=== PATIENT | male | born 1945 | race Caucasian/White ===

== ENCOUNTER 2016-09-26 21:05 | Observation (INO) | payer MEDICARE, BC ==
--- NOTE | 2016-09-26 21:44 | EDM.PDOC ---
Addendum entered and electronically signed by Eliu Stewart PA 09/26/16 22:48 : please use ER note as admission H and P Original Note: ED HPI GENERAL MEDICAL PROBLEM - General Chief Complaint: Chest Pain Stated Complaint: chest pain Time Seen by Provider: 09/26/16 21:25 Source of Information: Reports: Patient History Limitations: Reports: No Limitations - History of Present Illness INITIAL COMMENTS - FREE TEXT/NARRATIVE: 71 yo wm with PMH of atrial fibrillation presents to ER with 2 episodes of sharp pleuritic left sided chest pain which began at 7pm tonight. Pt reports he was walking from living room to kitchen when he developed sudden onset sharp left sided chest pain which lasted for 5 minutes. Pt reports some mild shortness of breath. Pt reports pain happened again before bed tonight but it was much more mild and without shortness of breath. Pt denies nausea, dizziness , diaphoresis or palpitations. Onset: Today Onset Date: 09/26/16 Onset Time: 19:00 Duration: Hour(s): (3) Location: Reports: Chest Severity: Mild Improves with: Reports: None Worsens with: Reports: Breathing Context: Denies: Activity, Exercise, Lifting, Sick Contact, Trauma Associated Symptoms: Reports: No Other Symptoms, Shortness of Breath - Related Data Allergies Allergy/AdvReac Type Severity Reaction Status Date / Time aspirin Allergy Airway Verified 01/15/15 11:21 Tightness ibuprofen Allergy Airway Verified 01/15/15 11:21 Tightness ketorolac tromethamine Allergy Airway Verified 01/15/15 11:21 [From Toradol] Tightness Home Meds: Home Meds Clopidogrel [Plavix] 75 mg PO DAILY 04/19/14 [History] Diltiazem [Cardizem CD] 240 mg PO DAILY 04/19/14 [History] Fluticasone/Salmeterol [Advair 250-50] 2 puff INH BID 04/19/14 [History] Gabapentin [Neurontin] 600 mg PO TID 04/19/14 [History] Multivitamin [Multi-Vitamin Daily] 1 tab PO DAILY 04/19/14 [History] Tiotropium [Spiriva Handihaler] 1 puff INH DAILY 08/31/14 [History] Albuterol [Proair HFA] 1 puff INH BID 01/15/15 [History] Acetaminophen/oxyCODONE [Percocet 325-5 MG] 1 - 2 tab PO Q4H PRN 09/26/16 [ History] Past Medical History - Past Surgical History Other HEENT Surgeries/Procedures: / Social & Family History - Tobacco Use Smoking Status *Q: Former Smoker Years of Tobacco use: 25 Used Tobacco, but Quit: Yes Month Tobacco Last Used: 1994 Second Hand Smoke Exposure: No - Alcohol Use Days Per Week of Alcohol Use: 1 Number of Drinks Per Day: 1 Total Drinks Per Week: 1 - Recreational Drug Use Recreational Drug Use: No - Living Situation & Occupation Living situation: Reports: Occupation: Retired ED ROS GENERAL - Review of Systems Review Of Systems: See Below Constitutional: Reports: No Symptoms HEENT: Reports: No Symptoms Respiratory: Reports: No Symptoms Cardiovascular: Reports: Chest Pain Endocrine: Reports: No Symptoms GI/Abdominal: Reports: No Symptoms : Reports: No Symptoms Musculoskeletal: Reports: No Symptoms Skin: Reports: No Symptoms Neurological: Reports: No Symptoms Psychiatric: Reports: No Symptoms Hematologic/Lymphatic: Reports: No Symptoms Immunologic: Reports: No Symptoms ED EXAM, GENERAL - Physical Exam Exam: See Below Exam Limited By: No Limitations General Appearance: Alert, WD/WN, No Apparent Distress Throat/Mouth: Normal Inspection, Normal Lips, Normal Teeth, Normal Gums, Normal Oropharynx, Normal Voice, No Airway Compromise Head: Atraumatic, Normocephalic Neck: Normal Inspection, Supple, Non-Tender, Full Range of Motion Respiratory/Chest: No Respiratory Distress, Lungs Clear, Normal Breath Sounds, No Accessory Muscle Use, Chest Non-Tender Cardiovascular: Normal Peripheral Pulses, Regular Rate, Rhythm, No Edema, No Gallop, No JVD, No Murmur, No Rub GI/Abdominal: Normal Bowel Sounds, Soft, Non-Tender, No Organomegaly, No Distention, No Abnormal Bruit, No Mass Back Exam: Normal Inspection, Full Range of Motion, NT Extremities: Normal Inspection, Normal Range of Motion, Non-Tender, Normal Capillary Refill, No Pedal Edema Neurological: Alert, Oriented, CN II-XII Intact, Normal Cognition, Normal Gait, Normal Reflexes, No Motor/Sensory Deficits Psychiatric: Normal Affect, Normal Mood Skin Exam: Warm, Dry, Intact, Normal Color, No Rash Lymphatic: No Adenopathy EKG INTERPRETATION EKG Date: 09/26/16 Time: 21:20 Rhythm: NSR Rate (beats/min): 103 [place]: normal P-wave: present QRS: normal ST-T: normal QT: normal Comparison: NA - no prior EKG Course - Vital Signs Last Recorded V/S: Last Vital Signs Temp 36.4 C 09/26/16 21:43 Pulse 112 H 09/26/16 21:43 Resp 18 09/26/16 21:43 BP 98/51 L 09/26/16 21:43 Pulse Ox 95 09/26/16 21:43 - Orders/Labs/Meds Orders: Active Orders 24 hr Category Date Time Status Cardiac Monitoring [RC] . DIRECTED Care 09/26/16 21:43 Active EKG Documentation Completion [RC] ASDIRECTED Care 09/26/16 21:20 Active Oxygen Therapy, ED [RC] ASDIRECTED Care 09/26/16 21:43 Active CXR [Chest 2V] [CR] Stat Exams 09/26/16 21:20 Taken EKG 12 Lead [EK] Routine Ther 09/26/16 21:20 Ordered Labs: Laboratory Tests 09/26/16 09/26/16 09/26/16 Range/Units 21:35 21:35 21:35 WBC 9.4 (5.0-10.0) 10^3/uL RBC 5.05 (4.50-6.00) 10^6/uL Hgb 15.5 (13.0-17.0) g/dL Hct 45.3 (40.0-52.0) % MCV 89.7 (82.0-92.0) fL MCH 30.7 (27.0-31.0) pg MCHC 34.3 (32.0-36.0) g/dL RDW 13.0 (11.5-14.5) % Plt Count 212 (150-300) 10^3/uL MPV 8.1 (7.4-10.4) fL Neut % (Auto) 56.3 (50.0-70.0) % Lymph % (Auto) 29.8 (20.0-40.0) % [place] % (Auto) 8.5 H (2.0-8.0) % Eos % (Auto) 4.7 H (1.0-3.0) % Baso % (Auto) 0.7 (0.0-1.0) % Neut # (Auto) 5.3 (2.5-7.0) 10^3/uL Lymph # (Auto) 2.8 (1.0-4.0) 10^3/uL [place] # (Auto) 0.8 (0.1-0.8) 10^3/uL Eos # (Auto) 0.4 H (0.1-0.3) 10^3/uL Baso # (Auto) 0.1 (0.0-0.1) 10^3/uL PT 10.3 (8.9-11.4) SEC INR 1.0 (0.9-1.1) APTT 25.9 (20.8-31.2) SEC D-Dimer, Quantitative 128 (<400) ng/mL Sodium 140 (136-145) mmol/L Potassium 4.9 (3.3-5.3) mmol/L Chloride 103 (98-115) mmol/L Carbon Dioxide 29.5 (21.0-32.0) mmol/L BUN 30 H (6-25) mg/dL Creatinine 1.00 (0.51-1.17) mg/dL Est Cr Clr Drug Dosing TNP Estimated GFR (MDRD) > 60 mL/min Glucose 117 H (70-110) mg/dL Calcium 9.3 (8.7-10.3) mg/dL Total Bilirubin 0.4 (0.2-1.0) mg/dL AST 20 (15-37) U/L ALT 37 (12-78) U/L Alkaline Phosphatase 107 (46-116) IU/L Creatine Kinase 105 (26-276) U/L CK-MB (CK-2) 5.10 H* (0.00-4.30) ng/mL Troponin I < 0.04 (0.00-0.070) ng/mL B-Natriuretic Peptide 43 (0-100) pg/mL Total Protein 7.5 (6.4-8.2) g/dL Albumin 3.95 (3.00-4.80) g/dL - Radiology Interpretation Free Text/Narrative:: CXR- NAD Departure - Departure Time of Disposition: 22:40 Disposition: Refer to Observation Condition: good Clinical Impression: Atypical chest pain Forms: ED Department Discharge - My Orders Last 24 Hours: My Active Orders 09/26/16 21:20 EKG Documentation Completion [RC] ASDIRECTED CXR [Chest 2V] [CR] Stat EKG 12 Lead [EK] Routine 09/26/16 21:43 Cardiac Monitoring [RC] . DIRECTED Oxygen Therapy, ED [RC] ASDIRECTED - Assessment/Plan Last 24 Hours: My Active Orders 09/26/16 21:20 EKG Documentation Completion [RC] ASDIRECTED CXR [Chest 2V] [CR] Stat EKG 12 Lead [EK] Routine 09/26/16 21:43 Cardiac Monitoring [RC] . DIRECTED Oxygen Therapy, ED [RC] ASDIRECTED Assessment:: 1. Atypical chest pain 2. intermittent tachycardia- controlled Plan: 1. admit for observation- dr Cece Wheeler 2. supportive care 3. repeat trop I in am 4. nitro/ no asprin due to allergy
[2016-09-26 22:11] LABS: CHLORIDE,CL 103 mmol/L (98-115); SODIUM,NA 140 mmol/L (136-145)
[2016-09-26] MEDS ORDERED: Sodium Chloride 0.9% 5 ML Syringe FLUSH PRN (22:42)
[2016-09-26] MEDS ORDERED: Acetaminophen 500 MG Tab PO PRN (22:45)
[2016-09-26] MEDS: Acetaminophen/oxyCODONE 325-5 MG Tab PO PRN (23:50)
[2016-09-26] MEDS ORDERED: Gabapentin 300 MG Cap ONE (23:52)
[2016-09-26] MEDS: Non-Formulary Medication 1 Each (Gabapentin 600 MG) PO SCH (23:55)
[2016-09-27] MEDS: Nitroglycerin 2% Oint 1 GM UD Packet TOP SCH ×2 (01:40→06:54)
[2016-09-27] MEDS ORDERED: Gabapentin 300 MG Cap ONE (06:36)
[2016-09-27] MEDS: Non-Formulary Medication 1 Each (Gabapentin 600 MG) PO SCH (06:52)
[2016-09-27 06:55] VITALS: BP 130/79
[2016-09-27] MEDS: Acetaminophen/oxyCODONE 325-5 MG Tab PO PRN (06:55)
[2016-09-27] MEDS ORDERED: Albuterol HFA 18 Gm Inhaler INH SCH (08:00)
[2016-09-27 08:14] LABS: CHLORIDE,CL 104 mmol/L (98-115); SODIUM,NA 139 mmol/L (136-145)
--- NOTE | 2016-09-27 08:47 | PCM.DCSUM1 ---
Discharge Summary - Hospital Course Free Text/Narrative:: Vladislav is discharged from observation today after being admitted with L sided chest pain. He was ruled out with 2 negative troponins. He states he thinks he pulled a muscle. He is ready to go home. He has had no chest pain since being here. Appetite is OK. Will get him scheduled for a Cardiolite stress test as an outpatient. - Discharge Data Discharge Date: 09/27/16 Discharge Disposition: Home, Self-Care 01 Condition: Good - Patient Instructions Diet: Regular Diet as Tolerated Activity: As Tolerated Driving: May Drive Today - Discharge Plan Home Medications: Home Meds Clopidogrel [Plavix] 75 mg PO DAILY 04/19/14 [History] Diltiazem [Cardizem CD] 240 mg PO DAILY 04/19/14 [History] Fluticasone/Salmeterol [Advair 250-50] 2 puff INH BID 04/19/14 [History] Gabapentin [Neurontin] 600 mg PO TID 04/19/14 [History] Multivitamin [Multi-Vitamin Daily] 1 tab PO DAILY 04/19/14 [History] Tiotropium [Spiriva Handihaler] 1 puff INH DAILY 08/31/14 [History] Albuterol [Proair HFA] 1 puff INH BID 01/15/15 [History] Acetaminophen/oxyCODONE [Percocet 325-5 MG] 1 - 2 tab PO Q4H PRN 09/26/16 [ History] - Discharge Summary/Plan Comment DC Time >30 min.: No - General Info Date of Service: 09/27/16 - Patient Data Vitals - Most Recent: Last Vital Signs Temp 97.6 F 09/27/16 06:00 Pulse 71 09/27/16 06:00 Resp 20 09/27/16 06:00 BP 130/79 09/27/16 06:00 Pulse Ox 96 09/27/16 06:00 Weight - Most Recent: 210 lb 8 oz I&O - Last 24 hours: Intake & Output 09/26/16 09/27/16 09/27/16 22:59 06:59 14:59 Intake Total 0 Balance 0 Lab Results - Last 24 hrs: Laboratory Results - last 24 hr 09/27/16 09/27/16 Range/Units 07:05 07:05 WBC 6.1 (5.0-10.0) 10^3/uL RBC 5.00 (4.50-6.00) 10^6/uL Hgb 15.5 (13.0-17.0) g/dL Hct 44.7 (40.0-52.0) % MCV 89.4 (82.0-92.0) fL MCH 31.0 (27.0-31.0) pg MCHC 34.6 (32.0-36.0) g/dL RDW 12.8 (11.5-14.5) % Plt Count 193 (150-300) 10^3/uL MPV 8.4 (7.4-10.4) fL Neut % (Auto) 54.4 (50.0-70.0) % Lymph % (Auto) 29.5 (20.0-40.0) % [place] % (Auto) 8.1 H (2.0-8.0) % Eos % (Auto) 6.6 H (1.0-3.0) % Baso % (Auto) 1.4 H (0.0-1.0) % Neut # (Auto) 3.3 (2.5-7.0) 10^3/uL Lymph # (Auto) 1.8 (1.0-4.0) 10^3/uL [place] # (Auto) 0.5 (0.1-0.8) 10^3/uL Eos # (Auto) 0.4 H (0.1-0.3) 10^3/uL Baso # (Auto) 0.1 (0.0-0.1) 10^3/uL Sodium 139 (136-145) mmol/L Potassium 4.2 (3.3-5.3) mmol/L Chloride 104 (98-115) mmol/L Carbon Dioxide 29.8 (21.0-32.0) mmol/L BUN 24 (6-25) mg/dL Creatinine 0.89 (0.51-1.17) mg/dL Est Cr Clr Drug Dosing 88.35 mL/min Estimated GFR (MDRD) > 60 mL/min Glucose 105 (70-110) mg/dL Calcium 9.0 (8.7-10.3) mg/dL Magnesium 2.1 (1.8-2.4) mg/dL Creatine Kinase 70 (26-276) U/L CK-MB (CK-2) 3.80 (0.00-4.30) ng/mL Troponin I < 0.04 (0.00-0.070) ng/mL Med Orders - Current: Current Medications Albuterol (Ventolin Hfa) 0 gm INH BIDRT [facility] Clopidogrel Bisulfate (Plavix) 75 mg PO DAILY [facility] Diltiazem HCl (Cardizem Cd) 240 mg PO DAILY [facility] Gabapentin (Neurontin) 600 mg PO TID [facility] Multivitamins/Minerals (Centrum) 1 tab PO DAILY [facility] Nitroglycerin (Nitro-Bid 2%) 1 gm TOP Q6H [facility] Last Admin: 09/27/16 06:54 Dose: Not Given Oxycodone/Acetaminophen (Percocet 325-5 Mg) 1 tab PO Q4H PRN PRN Reason: Pain Last Admin: 09/27/16 06:55 Dose: 1 tab Fluticasone/Salmeterol (Advair Diskus 250-50) 2 puff INH BID [facility] Sodium Chloride (Syrex Flush) 5 ml FLUSH Q8HR PRN PRN Reason: Keep Vein Open Tiotropium [place] (Spiriva Handihaler) 18 mcg INH DAILYRT [facility] Discontinued Medications Acetaminophen (Tylenol Extra Strength) 1,000 mg PO Q6H PRN PRN Reason: Pain Gabapentin (Neurontin) Confirm Administered Dose 600 mg .ROUTE .STK-MED ONE Stop: 09/26/16 23:53 Last Admin: 09/27/16 01:40 Dose: Not Given Gabapentin (Neurontin) Confirm Administered Dose 300 mg .ROUTE .STK-MED ONE Stop: 09/27/16 06:37 Last Admin: 09/27/16 06:55 Dose: Not Given Non-Formulary Medication (Gabapentin) 600 mg PO TID [facility] Last Admin: 09/27/16 06:52 Dose: 300 mg Non-Formulary Medication (Multivitamin [Multi-Vitamin Daily]) 1 tab PO DAILY [facility] - Exam General: Reports: alert, oriented, cooperative, no acute distress Lungs: Reports: Clear to auscultation, Normal respiratory effort Cardiovascular: Reports: No Murmurs, Irregular Rhythm *Q Meaningful Use (DIS) - VTE *Q VTE Criteria *Q: - Stroke *Q Stroke Criteria *Q: - AMI *Q AMI Criteria *Q:
[2016-09-27] MEDS ORDERED: Atropine 0.1 MG/ML 10 ML Syringe IVPUSH PRN (08:57)
[2016-09-27] MEDS ORDERED: Nitroglycerin 0.4 MG Tab.SL SL PRN (08:57)
[2016-09-27] MEDS ORDERED: Lidocaine 2% 100 MG/5 ML Syringe IVPUSH PRN (08:57)
[2016-09-27] MEDS ORDERED: EPINEPHrine 1:10,000 1 MG/10 ML Syringe IVPUSH PRN (08:57)
[2016-09-27] MEDS ORDERED: Non-Formulary Medication 1 Each (Multivitamin [Multi-Vitamin Daily] 1 TAB) PO SCH (09:00)
[2016-09-27] MEDS ORDERED: Tiotropium Inhaler 18 MCG Inhalation Powder Cap Kit of 5 INH SCH (09:00)
[2016-09-27] MEDS ORDERED: Clopidogrel 75 MG Tab PO SCH (09:00)
[2016-09-27] MEDS ORDERED: ADVAIR INH SCH (09:00)
[2016-09-27] MEDS ORDERED: Fluticasone/Salmeterol 250-50 MCG Inhalation Powder 14/Diskus INH SCH (09:00)
[2016-09-27] MEDS ORDERED: Diltiazem 240 MG Cap.CD PO SCH (09:00)
[2016-09-27] MEDS ORDERED: Multivitamins with Minerals/Iron/Folic Acid/Lycopene Tab PO SCH (09:00)
[2016-09-27] MEDS ORDERED: TIOTROPIUM INH SCH (09:01)
[2016-09-27] MEDS ORDERED: Gabapentin 300 MG Cap PO ONE (10:00)
[2016-09-27] MEDS ORDERED: Gabapentin 300 MG Cap PO SCH (14:00)
== END 2016-09-27 10:20 | disposition home or self-care (01) ==
LOC: KA.ED 21:05 → KA.MS 22:50
PROVIDERS: ADMIT Physician Assistant Medical; ATTEND Internal Medicine
DX: R07.89 Other chest pain (principal); R00.0 Tachycardia, unspecified; Z88.8 Allergy status to other drugs, medicaments and biological substances; Z79.899 Other long term (current) drug therapy; Z87.891 Personal history of nicotine dependence
CPT/HCPCS: 36415; 71020; 80048; 80053; 82550; 82553; 83735; 83880; 84484; 85025; 85379; 85610; 85730; 93005; 99219; 99285; A9270; G0378

== ENCOUNTER 2020-05-22 15:55 | Emergency (ER) | payer MEDICARE, BC ==
[2020-05-22] MEDS: Sodium Chloride 0.9% 10 ML Syringe FLUSH PRN ×2 (16:20→18:14)
--- NOTE | 2020-05-22 17:59 | CR ---
[id number] RAD/RAD Chest PA or AP 1V EXAM: SINGLE VIEW CHEST. INDICATION: SHORTNESS OF BREATH COMPARISON: CORRELATION IS MADE WITH FEBRUARY 14, 2017 FINDINGS: The lungs are clear and somewhat hyperaerated The cardiomediastinal contour is stable but prominent IMPRESSION: COPD Zack Og MD 05/22/20 [id number] Thank you for allowing us to participate in the care of your patient.
[2020-05-22] MEDS ORDERED: methylPREDNISolone Sodium Succinate 125 MG/2 ML SDV IVPUSH ONE (18:05)
--- NOTE | 2020-05-22 18:10 | EDM.PDOC ---
ED HPI GENERAL MEDICAL PROBLEM - General Chief Complaint: General Stated Complaint: COVID +;O2 LEVEL CK Time Seen by Provider: 05/22/20 17:00 Source of Information: Reports: Patient History Limitations: Reports: No Limitations - History of Present Illness INITIAL COMMENTS - FREE TEXT/NARRATIVE: 75 YO WM PRESENTS TO ER COMPLAINING OF SHORTNESS OF BREATH WHICH BEGAN TODAY. PT REPORTS HE WAS DIAGNOSED WITH COVID 3 DAYS AGO. PT REPORTS MILD HEADACHE/BODY ACHES WITH NONPRODUCTIVE COUGH AND CONGESTION. PT REPORTS TODAY HE BEGAN TO FEEL SHORT OF BREATH PROMPTING ER EVALUATION. PT DENIES CHEST PAIN, DIZZINESS, DIAPHORESIS OR NAUSEA/VOMITING. PT REPORTS MILD LOW GRADE FEVER. PT REPORTS TAKING HIS SPIRIVA AND ADVAIR WITH SOME RELIEF OF HIS SHORTNESS OF BREATH. Onset: Today Duration: Day(s): (4) Location: Reports: Generalized Quality: Reports: Ache Severity: Mild Improves with: Reports: Rest Worsens with: Reports: Breathing Associated Symptoms: Reports: Cough, Fever/Chills, Malaise, Shortness of Breath, Weakness. Denies: Chest Pain, Nausea/Vomiting - Related Data Allergies Allergy/AdvReac Type Severity Reaction Status Date / Time aspirin Allergy Airway Verified 05/22/20 16:42 Tightness ibuprofen Allergy Airway Verified 05/22/20 16:42 Tightness ketorolac tromethamine Allergy Airway Verified 05/22/20 16:42 [From Toradol] Tightness levofloxacin [From Levaquin] Allergy Cannot Verified 05/22/20 16:42 Remember Home Meds: Home Meds Clopidogrel [Plavix] 75 mg PO DAILY 04/19/14 [History] Diltiazem [Cardizem CD] 240 mg PO DAILY 04/19/14 [History] Fluticasone/Salmeterol [Advair 250-50] 2 puff INH BID 04/19/14 [History] Gabapentin [Neurontin] 600 mg PO 5XDAY 04/19/14 [History] Multivitamin [Multi-Vitamin Daily] 1 tab PO DAILY 04/19/14 [History] Tiotropium [Spiriva Handihaler] 1 puff INH DAILY 08/31/14 [History] Albuterol [Proair HFA] 1 puff INH BID 01/15/15 [History] Acetaminophen/oxyCODONE [Percocet 325-5 MG] 1 - 2 tab PO Q4H PRN 09/26/16 [History] Hydrocodone/Acetaminophen [Hydrocodon-Acetaminophen 5-325] 1 tab PO Q6H PRN 09/27/16 [History] Albuterol Sulfate [Albuterol Sulfate Hfa] 8.5 gm IH Q4HR #1 hfa.[email or web address] 05/22/20 [Rx] predniSONE 20 mg PO WITHBREAKFAST #15 tab 05/22/20 [Rx] Past Medical History HEENT History: Reports: Cataract, Hard of Hearing, Impaired Vision Cardiovascular History: Reports: Afib Respiratory History: Reports: COPD, Pneumonia, Recurrent Gastrointestinal History: Reports: GERD Neurological History: Reports: Neuropathy, Peripheral Psychiatric History: Reports: Mood Swings - Past Surgical History HEENT Surgical History: Reports: Cataract Surgery Other HEENT Surgeries/Procedures: recent cataract surgery Musculoskeletal Surgical History: Reports: Other (See Below) Other Musculoskeletal Surgeries/Procedures:: right leg fracture repair Social & Family History - Tobacco Use Tobacco Use Status *Q: Former Tobacco User Used Tobacco, but Quit: Yes Month/Year Tobacco Last Used: quit 1993 - Caffeine Use Caffeine Use: Reports: Coffee, Soda - Alcohol Use Days Per Week of Alcohol Use: 1 Number of Drinks Per Day: 2 Total Drinks Per Week: 2 - Recreational Drug Use Recreational Drug Use: No - Living Situation & Occupation Living situation: Reports: Occupation: Retired ED ROS GENERAL - Review of Systems Review Of Systems: See Below Constitutional: Reports: Fever, Chills, Malaise HEENT: Reports: Rhinitis Respiratory: Reports: Shortness of Breath Cardiovascular: Reports: No Symptoms Endocrine: Reports: No Symptoms GI/Abdominal: Reports: No Symptoms : Reports: No Symptoms Musculoskeletal: Reports: Muscle Pain Skin: Reports: No Symptoms Neurological: Reports: No Symptoms Psychiatric: Reports: No Symptoms Hematologic/Lymphatic: Reports: No Symptoms Immunologic: Reports: No Symptoms ED EXAM, GENERAL - Physical Exam Exam: See Below Exam Limited By: No Limitations General Appearance: Alert, WD/WN, No Apparent Distress Nose: Clear Rhinorrhea Throat/Mouth: Normal Inspection, Normal Lips, Normal Teeth, Normal Gums, Normal Oropharynx, Normal Voice, No Airway Compromise Head: Atraumatic, Normocephalic Neck: Normal Inspection, Supple, Non-Tender, Full Range of Motion Respiratory/Chest: No Respiratory Distress, Lungs Clear, Normal Breath Sounds, No Accessory Muscle Use, Chest Non-Tender Cardiovascular: Normal Peripheral Pulses, Regular Rate, Rhythm, No Edema, No Gallop, No JVD, No Murmur, No Rub GI/Abdominal: Normal Bowel Sounds, Soft, Non-Tender, No Organomegaly, No Distention, No Abnormal Bruit, No Mass Back Exam: Normal Inspection, Full Range of Motion, NT Extremities: Normal Inspection, Normal Range of Motion, Non-Tender, Normal Capillary Refill, No Pedal Edema Neurological: Alert, Oriented, CN II-XII Intact, Normal Cognition, Normal Gait, Normal Reflexes, No Motor/Sensory Deficits Psychiatric: Normal Affect, Normal Mood Skin Exam: Warm, Dry, Intact, Normal Color, No Rash Lymphatic: No Adenopathy Course - Vital Signs Last Recorded V/S: Last Vital Signs Temp 96.5 F L 05/22/20 16:00 Pulse 88 05/22/20 18:02 Resp 18 05/22/20 18:02 BP 137/88 05/22/20 18:02 Pulse Ox 93 L 05/22/20 18:02 - Orders/Labs/Meds Orders: Active Orders 24 hr Category Date Time Status methylPREDNISolone Sod Succ [Solu-MEDROL] Med 05/22/20 18:05 Once 125 mg IVPUSH ONETIME ONE - Radiology Interpretation Free Text/Narrative:: CXR-COPD WITHOUT PNEUMONIA Departure - Departure Time of Disposition: 18:16 Disposition: Home, Self-Care 01 Condition: Fair Clinical Impression: COVID-19, COPD exacerbation - Discharge Information Prescriptions: Albuterol Sulfate [Albuterol Sulfate Hfa] 8.5 gm IH Q4HR #1 hfa.aer.ad predniSONE 20 mg PO WITHBREAKFAST #15 tab Instructions: Chronic Obstructive Pulmonary Disease Exacerbation, [id number], COVID-19 Frequently Asked Questions Referrals: Paolo Cerda, [facility] [Primary Care Provider] - Additional Instructions: 1. DISCHARGE HOME 2. ALBUTEROL HFA 2 PUFFS EVERY 4 HOURS AND NEEDED 3. PREDNISONE 60MG DAILY X 5 DAYS 4. FOLLOW UP WITH PCP FOR FURTHER EVALUATION AND TREATMENT 5. RETURN TO ER FOR WORSENING SYMPTOMS Sepsis Event Note (ED) - Evaluation Sepsis Screening Result: No Definite Risk - Focused Exam Vital Signs: Vital Signs Temp Pulse Resp BP Pulse Ox 05/22/20 16:45 82 18 127/80 91 L 05/22/20 16:31 77 18 117/73 93 L 05/22/20 16:15 88 18 137/88 93 L 05/22/20 16:00 96.5 F L 86 18 140/77 93 L - My Orders Last 24 Hours: My Active Orders 05/22/20 18:05 methylPREDNISolone Sod Succ [Solu-MEDROL] 125 mg IVPUSH ONETIME ONE - Assessment/Plan Last 24 Hours: My Active Orders 05/22/20 18:05 methylPREDNISolone Sod Succ [Solu-MEDROL] 125 mg IVPUSH ONETIME ONE Assessment:: 1. COVID 2. COPD MILD EXACERBATION Plan: 1. DISCHARGE HOME 2. ALBUTEROL HFA 2 PUFFS EVERY 4 HOURS AND NEEDED 3. PREDNISONE 60MG DAILY X 5 DAYS 4. FOLLOW UP WITH PCP FOR FURTHER EVALUATION AND TREATMENT 5. RETURN TO ER FOR WORSENING SYMPTOMS
[2020-05-22 18:19] VITALS: BP 138/85; PULSE 70
== END 2020-05-22 18:30 | disposition home or self-care (01) ==
LOC: KA.ED 15:55
DX: U07.1 COVID-19 (principal); J44.1 Chronic obstructive pulmonary disease with (acute) exacerbation; I48.91 Unspecified atrial fibrillation; G62.9 Polyneuropathy, unspecified; Z88.6 Allergy status to analgesic agent; Z88.1 Allergy status to other antibiotic agents; Z79.02 Long term (current) use of antithrombotics/antiplatelets; Z79.899 Other long term (current) drug therapy; Z87.891 Personal history of nicotine dependence
CPT/HCPCS: 71045; 96374; 99284; J2930

== ENCOUNTER 2020-05-25 19:49 | Emergency (ER) | payer MEDICARE, BC ==
--- NOTE | 2020-05-25 20:06 | EDM.PDOC ---
ED HPI GENERAL MEDICAL PROBLEM - General Chief Complaint: Respiratory Problem Stated Complaint: SHORTNESS OF BREATH Time Seen by Provider: 05/25/20 20:02 Source of Information: Reports: Patient History Limitations: Reports: No Limitations - History of Present Illness INITIAL COMMENTS - FREE TEXT/NARRATIVE: 75 YO WM PRESENTS TO ER WITH WORSENING SHORTNESS OF BREATH X 1 DAY. PT WAS DIAGNOSED WITH COVID 05/19/2020 AND CAME TO ER FOR SHORTNESS OF BREATH 05/22/2020. PT HAD A NEGATIVE CHEST XRAY AT THAT TIME, AND WAS STARTED ON PREDNISONE 60MG DAILY AND ALBUTEROL HFA Q4 HOURS. PT REPORTS HE INITIALLY FELT BETTER ON PREDNISONE BUT WOKE THIS AM WITH BODY ACHES, CHEST AND BACK TIGHTNESS AND WORSENING SHORTNESS OF BREATH. PT REPORTS NONPRODUCTIVE COUGH AND SUBJECTIVE FEVERS WITH SORE THROAT. Onset Date: 05/19/20 Duration: Getting Worse, Waxing/Waning Location: Reports: Chest, Generalized Severity: Moderate Improves with: Reports: Rest Worsens with: Reports: Breathing, Movement Associated Symptoms: Reports: Cough, Fever/Chills, Shortness of Breath - Related Data Allergies Allergy/AdvReac Type Severity Reaction Status Date / Time aspirin Allergy Airway Verified 05/22/20 16:42 Tightness ibuprofen Allergy Airway Verified 05/22/20 16:42 Tightness ketorolac tromethamine Allergy Airway Verified 05/22/20 16:42 [From Toradol] Tightness levofloxacin [From Levaquin] Allergy Cannot Verified 05/22/20 16:42 Remember Home Meds: Home Meds Clopidogrel [Plavix] 75 mg PO DAILY 04/19/14 [History] Diltiazem [Cardizem CD] 240 mg PO DAILY 04/19/14 [History] Fluticasone/Salmeterol [Advair 250-50] 2 puff INH BID 04/19/14 [History] Gabapentin [Neurontin] 600 mg PO 5XDAY 04/19/14 [History] Multivitamin [Multi-Vitamin Daily] 1 tab PO DAILY 04/19/14 [History] Tiotropium [Spiriva Handihaler] 1 puff INH DAILY 08/31/14 [History] Albuterol [Proair HFA] 1 puff INH BID 01/15/15 [History] Acetaminophen/oxyCODONE [Percocet 325-5 MG] 1 - 2 tab PO Q4H PRN 09/26/16 [History] Hydrocodone/Acetaminophen [Hydrocodon-Acetaminophen 5-325] 1 tab PO Q6H PRN 09/27/16 [History] Albuterol Sulfate [Albuterol Sulfate Hfa] 8.5 gm IH Q4HR #1 hfa.[email or web address] 05/22/20 [Rx] predniSONE 20 mg PO WITHBREAKFAST #15 tab 05/22/20 [Rx] Past Medical History HEENT History: Reports: Cataract, Hard of Hearing, Impaired Vision Cardiovascular History: Reports: Afib Respiratory History: Reports: COPD, Pneumonia, Recurrent Gastrointestinal History: Reports: GERD Neurological History: Reports: Neuropathy, Peripheral Psychiatric History: Reports: Mood Swings - Past Surgical History HEENT Surgical History: Reports: Cataract Surgery Other HEENT Surgeries/Procedures: recent cataract surgery Musculoskeletal Surgical History: Reports: Other (See Below) Other Musculoskeletal Surgeries/Procedures:: right leg fracture repair Social & Family History - Caffeine Use Caffeine Use: Reports: Coffee, Soda - Living Situation & Occupation Living situation: Reports: Occupation: Retired ED ROS GENERAL - Review of Systems Review Of Systems: See Below Constitutional: Reports: Fever, Chills, Malaise HEENT: Reports: Rhinitis Respiratory: Reports: Shortness of Breath Cardiovascular: Reports: No Symptoms Endocrine: Reports: No Symptoms GI/Abdominal: Reports: No Symptoms : Reports: No Symptoms Musculoskeletal: Reports: No Symptoms Skin: Reports: No Symptoms Neurological: Reports: No Symptoms Psychiatric: Reports: No Symptoms Hematologic/Lymphatic: Reports: No Symptoms Immunologic: Reports: No Symptoms ED EXAM, GENERAL - Physical Exam Exam: See Below Exam Limited By: No Limitations General Appearance: Alert, WD/WN, No Apparent Distress Neck: Normal Inspection, Supple, Non-Tender, Full Range of Motion Respiratory/Chest: No Respiratory Distress, Normal Breath Sounds, No Accessory Muscle Use, Chest Non-Tender, Decreased Breath Sounds Cardiovascular: Normal Peripheral Pulses, Regular Rate, Rhythm, No Edema, No Gallop, No JVD, No Murmur, No Rub GI/Abdominal: Normal Bowel Sounds, Soft, Non-Tender, No Organomegaly, No Distention, No Abnormal Bruit, No Mass Back Exam: Normal Inspection, Full Range of Motion, NT Extremities: Normal Inspection, Normal Range of Motion, Non-Tender, Normal Capillary Refill, No Pedal Edema Neurological: Alert, Oriented, CN II-XII Intact, Normal Cognition, Normal Gait, Normal Reflexes, No Motor/Sensory Deficits Psychiatric: Normal Affect, Normal Mood Skin Exam: Warm, Dry, Intact, Normal Color, No Rash Lymphatic: No Adenopathy Course - Orders/Labs/Meds Orders: Active Orders 24 hr Category Date Time Status EKG Documentation Completion [RC] ASDIRECTED Care 05/25/20 21:06 Active Chest 2V [CR] Stat Exams 05/25/20 20:00 Ordered Sodium Chloride 0.9% [Normal Saline] 1,000 ml Med 05/25/20 21:09 Active IV .BOLUS EKG 12 Lead [EK] Stat Ther 05/25/20 21:06 Ordered Medication Orders Sodium Chloride (Normal Saline) 1,000 mls @ 999 mls/hr IV .BOLUS ONE Stop: 05/25/20 22:09 Labs: Laboratory Tests 05/25/20 05/25/20 05/25/20 Range/Units 20:30 20:30 20:30 WBC 8.90 (5.00-10.00) 10^3/uL RBC 4.79 (4.50-6.00) 10^6/uL Hgb 14.5 (13.0-17.0) g/dL Hct 42.7 (40.0-52.0) % MCV 89.1 (82.0-92.0) fL MCH 30.3 (27.0-31.0) pg MCHC 34.0 (32.0-36.0) g/dL RDW 12.8 (11.5-14.5) % Plt Count 169 (150-400) 10^3/uL MPV 10.7 H (7.4-10.4) fL Immature Gran % (Auto) 1.2 (0.0-5.0) % Neut % (Auto) 84.3 H (50.0-70.0) % Lymph % (Auto) 9.6 L (20.0-40.0) % [place] % (Auto) 4.8 (2.0-8.0) % Eos % (Auto) 0.0 L (1.0-3.0) % Baso % (Auto) 0.1 (0.0-1.0) % Neut # (Auto) 7.50 H (2.50-7.00) 10^3/uL Lymph # (Auto) 0.85 L (1.00-4.00) 10^3/uL [place] # (Auto) 0.43 (0.10-0.80) 10^3/uL Eos # (Auto) 0.00 L (0.10-0.30) 10^3/uL Baso # (Auto) 0.01 (0.00-0.10) 10^3/uL Immature Gran # (Auto) 0.11 (0.00-0.50) 10^3/uL Sodium 136 (136-145) mmol/L Potassium 3.9 (3.5-5.1) mmol/L Chloride 101 (98-107) mmol/L Carbon Dioxide 24.5 (21.0-32.0) mmol/L Anion Gap 14.4 (5-15) mmol/L BUN 24 H (7-18) mg/dL Creatinine 0.78 (0.51-1.17) mg/dL Est Cr Clr Drug Dosing 94.79 mL/min Estimated GFR (MDRD) > 60 mL/min Glucose 147 H (70-140) mg/dL Lactic Acid 2.0 (0.4-2.0) mmol/L Calcium 8.5 L (8.7-10.3) mg/dL Total Bilirubin 0.3 (0.2-1.0) mg/dL AST 18 (15-37) U/L ALT 31 (14-63) U/L Alkaline Phosphatase 110 (46-116) U/L Total Protein 6.8 (6.4-8.2) g/dL Albumin 3.31 L (3.40-5.00) g/dL Meds: Medications Generic Name Dose Route Start Last Admin Trade Name Freq PRN Reason Stop Dose Admin Sodium Chloride 1,000 mls @ 999 mls/hr 05/25/20 21:09 Normal Saline IV 05/25/20 22:09 .BOLUS ONE - Radiology Interpretation Free Text/Narrative:: CXR- BILATERAL DIFFUSE INTERSTITIAL AND AIRSPACE OPACITIES- ATYPICAL PNEUMONIA Departure - Departure Time of Disposition: 21:28 Disposition: Home, Self-Care 01 Condition: Good Clinical Impression: Pneumonia due to COVID-19 virus - Discharge Information Instructions: COVID-19 Frequently Asked Questions, Shortness of Breath, Adult, [id number] Referrals: Paolo Cerda [employer]SEMBLER [Primary Care Provider] - Forms: ED Department Discharge Additional Instructions: 1. DISCHARGE HOME 2. CONTINUE PREDNISONE AND ALBUTEROL DIRECTED 3. CONTINUE TO MONITOR OXYGEN SATURATION AND RETURN TO ER IF LESS THAN 90% 4. FOLLOW UP IN CLINIC FOR CONSIDERATION OF MONOCLONAL ANTIBODY TREATMENT 5. RETURN TO ER FOR WORSENING SYMPTOMS - My Orders Last 24 Hours: My Active Orders 05/25/20 20:00 Chest 2V [CR] Stat 05/25/20 21:06 EKG Documentation Completion [RC] ASDIRECTED EKG 12 Lead [EK] Stat 05/25/20 21:09 Sodium Chloride 0.9% [Normal Saline] 1,000 ml IV .BOLUS - Assessment/Plan Last 24 Hours: My Active Orders 05/25/20 20:00 Chest 2V [CR] Stat 05/25/20 21:06 EKG Documentation Completion [RC] ASDIRECTED EKG 12 Lead [EK] Stat 05/25/20 21:09 Sodium Chloride 0.9% [Normal Saline] 1,000 ml IV .BOLUS Assessment:: 1. COVID PNEUMONIA 2. DYSPNEA- IMPROVED Plan: 1. DISCHARGE HOME 2. CONTINUE PREDNISONE AND ALBUTEROL DIRECTED 3. CONTINUE TO MONITOR OXYGEN SATURATION AND RETURN TO ER IF LESS THAN 90% 4. FOLLOW UP IN CLINIC FOR CONSIDERATION OF MONOCLONAL ANTIBODY TREATMENT 5. RETURN TO ER FOR WORSENING SYMPTOMS
[2020-05-25 20:57] LABS: ANION GAP 14.4 mmol/L (5-15); CHLORIDE,CL 101 mmol/L (98-107); SODIUM,NA 136 mmol/L (136-145)
[2020-05-25] MEDS ORDERED: Sodium Chloride 0.9% 1,000 ML IV ONE (21:09)
[2020-05-25] MEDS ORDERED: Benzonatate 100 MG Cap PO ONE (21:45)
[2020-05-25 21:51] VITALS: BP 157/83; PULSE 93
--- NOTE | 2020-05-26 08:07 | CR ---
[id number] RAD/RAD Chest PA And Lateral EXAM: RAD Chest PA And Lateral CLINICAL DATA: SHORTNESS OF BREATH COMPARISON: CORRELATION IS MADE WITH MAY 22, 2020 FINDINGS: An abnormal interstitial pattern is seen. The cardiac silhouette is stable IMPRESSION: INTERSTITIAL PNEUMONIA VERSUS EDEMA PNEUMONIA FAVORED Zack Og MD 05/26/20 0806 Thank you for allowing us to participate in the care of your patient.
== END 2020-05-25 21:55 | disposition home or self-care (01) ==
LOC: KA.ED 19:49
DX: U07.1 COVID-19 (principal); J12.82 Pneumonia due to coronavirus disease 2019; I48.91 Unspecified atrial fibrillation; J44.9 Chronic obstructive pulmonary disease, unspecified; Z88.6 Allergy status to analgesic agent; Z88.8 Allergy status to other drugs, medicaments and biological substances; Z88.1 Allergy status to other antibiotic agents; Z79.02 Long term (current) use of antithrombotics/antiplatelets; Z79.899 Other long term (current) drug therapy
CPT/HCPCS: 36415; 71046; 80053; 83605; 85025; 93005; 99284; 99285-25; A9270-GY

== ENCOUNTER 2020-05-28 15:30 | Inpatient (IN) | payer MEDICARE, BC ==
[2020-05-28] MEDS ORDERED: REMDESIVIR 200 MG in Sodium Chloride 0.9% 250 ML IV ONE (16:24)
--- NOTE | 2020-05-28 16:24 | EDM.PDOC ---
ED HPI GENERAL MEDICAL PROBLEM - General Chief Complaint: General Stated Complaint: DYSPNEA/COVID POSITIVE Time Seen by Provider: 05/28/20 16:15 Source of Information: Reports: Patient History Limitations: Reports: No Limitations - History of Present Illness INITIAL COMMENTS - FREE TEXT/NARRATIVE: 75 YO WM PRESENTS TO ER WITH WORSENING SHORTNESS OF BREATH. PT WAS DIAGNOSED WITH COVID 05/19/2020 AND CAME TO ER FOR SHORTNESS OF BREATH 05/22/2020 AND 05/25/2020. PT HAD A NEGATIVE CHEST XRAY INITIALLY, BUT SHOWED EVIDENCE OF BILATERAL INTERSTITIAL PNEUMONIA ON 05/25/2020. PT RECEIVED PREDNISONE 60MG DAILY AND ALBUTEROL HFA Q4 HOURS AND STATES SHORTNESS OF BREATH CONTINUES. PT WAS SENT TO CLINIC FOR CONSIDERATION OF MONOCLONAL ANTIBODY INFUSION BUT WAS UNABLE TO GET DUE TO UNAVAILABLE. PT REPORTS CONTINUED BODY ACHES, FEVER/CHILLS, CHEST AND BACK TIGHTNESS WITH WORSENING SHORTNESS OF BREATH. Duration: Day(s): (10 DAYS) Location: Reports: Chest, Generalized Quality: Reports: Other (TIGHTNESS) Improves with: Reports: Rest Worsens with: Reports: Breathing, Movement Associated Symptoms: Reports: Cough, Fever/Chills, Shortness of Breath Chest Pain Score (Numeric/FACES): 8 - Related Data Allergies Allergy/AdvReac Type Severity Reaction Status Date / Time aspirin Allergy Airway Verified 05/28/20 16:13 Tightness ibuprofen Allergy Airway Verified 05/28/20 16:13 Tightness ketorolac tromethamine Allergy Airway Verified 05/28/20 16:13 [From Toradol] Tightness levofloxacin [From Levaquin] Allergy Cannot Verified 05/28/20 16:13 Remember Home Meds: Home Meds Fluticasone/Salmeterol [Advair 250-50] 1 puff INH BID 04/19/14 [History] Multivitamin [Multi-Vitamin Daily] 1 tab PO DAILY 04/19/14 [History] Tiotropium [Spiriva Handihaler] 1 cap INH DAILY 08/31/14 [History] Albuterol [Proair HFA] 1 puff INH Q4HR 01/15/15 [History] oxyCODONE HCl/Acetaminophen [Percocet 5-325 mg Tablet] 1 tab PO Q6HR PRN 05/28/20 [History] Past Medical History HEENT History: Reports: Cataract, Hard of Hearing, Impaired Vision Cardiovascular History: Reports: Afib Respiratory History: Reports: COPD, Pneumonia, Recurrent Gastrointestinal History: Reports: GERD Neurological History: Reports: Neuropathy, Peripheral Psychiatric History: Reports: Mood Swings - Past Surgical History HEENT Surgical History: Reports: Cataract Surgery Other HEENT Surgeries/Procedures: recent cataract surgery Musculoskeletal Surgical History: Reports: Other (See Below) Other Musculoskeletal Surgeries/Procedures:: right leg fracture repair Social & Family History - Caffeine Use Caffeine Use: Reports: Coffee, Soda - Living Situation & Occupation Living situation: Reports: Occupation: Retired ED ROS GENERAL - Review of Systems Review Of Systems: See Below Constitutional: Reports: Fever, Chills HEENT: Reports: Rhinitis Respiratory: Reports: Shortness of Breath Cardiovascular: Reports: Dyspnea on Exertion Endocrine: Reports: No Symptoms GI/Abdominal: Reports: No Symptoms : Reports: No Symptoms Musculoskeletal: Reports: No Symptoms Skin: Reports: No Symptoms Neurological: Reports: No Symptoms Psychiatric: Reports: No Symptoms Hematologic/Lymphatic: Reports: No Symptoms Immunologic: Reports: No Symptoms ED EXAM, GENERAL - Physical Exam Exam: See Below Exam Limited By: No Limitations General Appearance: Alert, WD/WN, No Apparent Distress Head: Atraumatic, Normocephalic Neck: Normal Inspection, Supple, Non-Tender, Full Range of Motion Respiratory/Chest: No Respiratory Distress, Normal Breath Sounds, No Accessory Muscle Use, Chest Non-Tender, Decreased Breath Sounds Cardiovascular: Normal Peripheral Pulses, Regular Rate, Rhythm, No Edema, No Gallop, No JVD, No Murmur, No Rub GI/Abdominal: Normal Bowel Sounds, Soft, Non-Tender, No Organomegaly, No Distention, No Abnormal Bruit, No Mass Back Exam: Normal Inspection, Full Range of Motion, NT Extremities: Normal Inspection, Normal Range of Motion, Non-Tender, Normal Capillary Refill, No Pedal Edema Neurological: Alert, Oriented, CN II-XII Intact, Normal Cognition, Normal Gait, Normal Reflexes, No Motor/Sensory Deficits Psychiatric: Normal Affect, Normal Mood Skin Exam: Warm, Dry, Intact, Normal Color, No Rash Lymphatic: No Adenopathy #1 Interpretation EKG Date: 05/28/20 Time: 16:16 Rhythm: A-Fib Rate (Beats/Min): 92 [place]: Normal P-Wave: Absent QRS: Normal ST-T: Normal QT: Normal Comparison: No Change Course - Vital Signs Last Recorded V/S: Last Vital Signs Temp 100 F 05/28/20 16:07 Pulse 95 05/28/20 16:07 Resp 17 05/28/20 16:07 BP 123/86 05/28/20 16:07 Pulse Ox 93 L 05/28/20 16:07 - Orders/Labs/Meds Orders: Active Orders 24 hr Category Date Time Status EKG Documentation Completion [RC] ASDIRECTED Care 05/28/20 15:58 Active CORONAVIRUS COVID-19 RAPID [MOLEC] Stat Lab 05/28/20 16:22 Ordered CULTURE BLOOD [BC] Stat Lab 05/28/20 16:23 Ordered CULTURE BLOOD [BC] Stat Lab 05/28/20 16:23 Ordered Sodium Chloride 0.9% [Normal Saline] 1,000 ml Med 05/28/20 16:25 Active IV .BOLUS Blood Culture x2 Reflex Set [OM.PC] Stat Oth 05/28/20 16:22 Ordered EKG 12 Lead [EK] Stat Ther 05/28/20 15:57 Ordered Medication Orders Sodium Chloride (Normal Saline) 1,000 mls @ 999 mls/hr IV .BOLUS ONE Stop: 05/28/20 17:25 Last Admin: 05/28/20 16:54 Dose: 999 mls/hr Documented by: RAVI Labs: Laboratory Tests 05/28/20 05/28/20 05/28/20 Range/Units 16:05 16:05 16:05 WBC 9.48 (5.00-10.00) 10^3/uL RBC 4.88 (4.50-6.00) 10^6/uL Hgb 14.7 (13.0-17.0) g/dL Hct 43.0 (40.0-52.0) % MCV 88.1 (82.0-92.0) fL MCH 30.1 (27.0-31.0) pg MCHC 34.2 (32.0-36.0) g/dL RDW 12.8 (11.5-14.5) % Plt Count 201 (150-400) 10^3/uL MPV 10.0 (7.4-10.4) fL Immature Gran % (Auto) 1.8 (0.0-5.0) % Neut % (Auto) 72.7 H (50.0-70.0) % Lymph % (Auto) 17.7 L (20.0-40.0) % [place] % (Auto) 7.1 (2.0-8.0) % Eos % (Auto) 0.4 L (1.0-3.0) % Baso % (Auto) 0.3 (0.0-1.0) % Neut # (Auto) 6.89 (2.50-7.00) 10^3/uL Lymph # (Auto) 1.68 (1.00-4.00) 10^3/uL [place] # (Auto) 0.67 (0.10-0.80) 10^3/uL Eos # (Auto) 0.04 L (0.10-0.30) 10^3/uL Baso # (Auto) 0.03 (0.00-0.10) 10^3/uL Immature Gran # (Auto) 0.17 (0.00-0.50) 10^3/uL Sodium 132 L (136-145) mmol/L Potassium 4.2 (3.5-5.1) mmol/L Chloride 98 (98-107) mmol/L Carbon Dioxide 29.1 (21.0-32.0) mmol/L Anion Gap 9.1 (5-15) mmol/L BUN 19 H (7-18) mg/dL Creatinine 0.86 (0.51-1.17) mg/dL Est Cr Clr Drug Dosing 85.97 mL/min Estimated GFR (MDRD) > 60 mL/min Glucose 116 (70-140) mg/dL Lactic Acid 1.3 (0.4-2.0) mmol/L Calcium 8.9 (8.7-10.3) mg/dL Total Bilirubin 0.6 (0.2-1.0) mg/dL AST 15 (15-37) U/L ALT 28 (14-63) U/L Alkaline Phosphatase 92 (46-116) U/L Creatine Kinase 39 (26-276) U/L CK-MB (CK-2) 0.60 (0.00-3.60) ng/mL Troponin I < 0.017 (0.000-0.056) ng/mL B-Natriuretic Peptide (0-100) pg/mL Total Protein 6.6 (6.4-8.2) g/dL Albumin 2.94 L (3.40-5.00) g/dL 05/28/20 Range/Units 16:05 WBC (5.00-10.00) 10^3/uL RBC (4.50-6.00) 10^6/uL Hgb (13.0-17.0) g/dL Hct (40.0-52.0) % MCV (82.0-92.0) fL MCH (27.0-31.0) pg MCHC (32.0-36.0) g/dL RDW (11.5-14.5) % Plt Count (150-400) 10^3/uL MPV (7.4-10.4) fL Immature Gran % (Auto) (0.0-5.0) % Neut % (Auto) (50.0-70.0) % Lymph % (Auto) (20.0-40.0) % [place] % (Auto) (2.0-8.0) % Eos % (Auto) (1.0-3.0) % Baso % (Auto) (0.0-1.0) % Neut # (Auto) (2.50-7.00) 10^3/uL Lymph # (Auto) (1.00-4.00) 10^3/uL [place] # (Auto) (0.10-0.80) 10^3/uL Eos # (Auto) (0.10-0.30) 10^3/uL Baso # (Auto) (0.00-0.10) 10^3/uL Immature Gran # (Auto) (0.00-0.50) 10^3/uL Sodium (136-145) mmol/L Potassium (3.5-5.1) mmol/L Chloride (98-107) mmol/L Carbon Dioxide (21.0-32.0) mmol/L Anion Gap (5-15) mmol/L BUN (7-18) mg/dL Creatinine (0.51-1.17) mg/dL Est Cr Clr Drug Dosing mL/min Estimated GFR (MDRD) mL/min Glucose (70-140) mg/dL Lactic Acid (0.4-2.0) mmol/L Calcium (8.7-10.3) mg/dL Total Bilirubin (0.2-1.0) mg/dL AST (15-37) U/L ALT (14-63) U/L Alkaline Phosphatase (46-116) U/L Creatine Kinase (26-276) U/L CK-MB (CK-2) (0.00-3.60) ng/mL Troponin I (0.000-0.056) ng/mL B-Natriuretic Peptide 37 (0-100) pg/mL Total Protein (6.4-8.2) g/dL Albumin (3.40-5.00) g/dL Meds: Medications Generic Name Dose Route Start Last Admin Trade Name Freq PRN Reason Stop Dose Admin Sodium Chloride 1,000 mls @ 999 mls/hr 05/28/20 16:25 05/28/20 16:54 Normal Saline IV 05/28/20 17:25 999 mls/hr .BOLUS ONE Administration Discontinued Medications Generic Name Dose Route Start Last Admin Trade Name Freq PRN Reason Stop Dose Admin Remdesivir 200 mg/ Sodium 250 mls @ 250 mls/hr 05/28/20 16:24 Chloride IV 05/28/20 16:25 ONETIME ONE - Radiology Interpretation Free Text/Narrative:: CXR- INTERSTITIAL RETICULAR BILATERAL INFILTRATES CONSISTENT WITH COVID PNEUMONIA- NO CHANGE FROM PREVIOUS 05/25/2020 Departure - Departure Time of Disposition: 17:09 Disposition: Admitted As Inpatient 64 Condition: Poor Clinical Impression: Pneumonia due to COVID-19 virus, Hyponatremia - Discharge Information Referrals: Paolo Cerda, TRANSITIONAL NURSE [Primary Care Provider] - Forms: ED Department Discharge Sepsis Event Note (ED) - Evaluation Sepsis Screening Result: Possible Sepsis Risk - Focused Exam Vital Signs: Vital Signs Temp Pulse Resp BP Pulse Ox 05/28/20 16:07 100 F 95 17 123/86 93 L - My Orders Last 24 Hours: My Active Orders 05/28/20 15:57 EKG 12 Lead [EK] Stat 05/28/20 15:58 EKG Documentation Completion [RC] ASDIRECTED 05/28/20 16:22 CORONAVIRUS COVID-19 RAPID [MOLEC] Stat Blood Culture x2 Reflex Set [OM.PC] Stat 05/28/20 16:23 CULTURE BLOOD [BC] Stat CULTURE BLOOD [BC] Stat 05/28/20 16:25 Sodium Chloride 0.9% [Normal Saline] 1,000 ml IV .BOLUS - Assessment/Plan Last 24 Hours: My Active Orders 05/28/20 15:57 EKG 12 Lead [EK] Stat 05/28/20 15:58 EKG Documentation Completion [RC] ASDIRECTED 05/28/20 16:22 CORONAVIRUS COVID-19 RAPID [MOLEC] Stat Blood Culture x2 Reflex Set [OM.PC] Stat 05/28/20 16:23 CULTURE BLOOD [BC] Stat CULTURE BLOOD [BC] Stat 05/28/20 16:25 Sodium Chloride 0.9% [Normal Saline] 1,000 ml IV .BOLUS Assessment:: 1. COVID PNEUMONIA- FAILED OUTPATIENT TREATMENT 2. HYPONATREMIA Plan: 1. ADMIT TO MEDICINE- DR SERGO LUGO 2. ALL ADMISSION ORDERS PER DR TROTTER 3. REMDESIVIR 100MG QD 4. DECADRON 6MG IV QD 5. DUONEB ALBUTEROL Q4 AND PRN 6. SUPPLEMENTAL O2 AT 2L 7. NS @100CC/HR
[2020-05-28] MEDS ORDERED: Sodium Chloride 0.9% 1,000 ML IV ONE (16:25)
--- NOTE | 2020-05-28 16:34 | CR ---
[id number] RAD/RAD Chest PA And Lateral EXAM: RAD Chest PA And Lateral INDICATION: CHEST TIGHTNESS. COMPARISON: May 25, 2020. DISCUSSION: Cardiomediastinal silhouette is stable in size and contour. Reticular pattern of the lungs bilaterally likely represents chronic interstitial lung disease. This is not changed when compared to the prior study. No new pulmonary infiltrates. Left basilar subsegmental atelectasis and/or scarring. No pneumothorax or pleural effusion. IMPRESSION: Stable chest. Clinton Krueger DO 05/28/20 [id number] Thank you for allowing us to participate in the care of your patient.
[2020-05-28 16:44] LABS: ANION GAP 9.1 mmol/L (5-15); CHLORIDE,CL 98 mmol/L (98-107); SODIUM,NA 132 mmol/L (136-145)
[2020-05-28] MEDS ORDERED: Acetaminophen 325 MG Tab PO PRN (17:11)
[2020-05-28] MEDS ORDERED: Sodium Chloride 0.9% 10 ML Syringe FLUSH PRN (17:11)
[2020-05-28] MEDS ORDERED: REMDESIVIR 100 MG in Sodium Chloride 0.9% 250 ML IV SCH (17:15)
[2020-05-28] MEDS: Dexamethasone 10 MG/ML SDV IVPUSH SCH (17:20)
[2020-05-28] MEDS ORDERED: Carbamide Peroxide 6.5% Otic Soln 15 ML Bottle EARRT PRN (18:40)
[2020-05-28] MEDS ORDERED: Zolpidem 5 MG Tab PO PRN (18:40)
[2020-05-28] MEDS ORDERED: Benzonatate 100 MG Cap PO PRN (18:40)
[2020-05-28] MEDS ORDERED: Codeine/guaiFENesin 10-100 MG/5 ML Syrup 5 ML Cup PO PRN (18:40)
[2020-05-28] MEDS ORDERED: Lidocaine 2% 100 MG/5 ML Syringe IVPUSH PRN (18:58)
[2020-05-28] MEDS ORDERED: Nitroglycerin 0.4 MG Tab.SL SL PRN (18:58)
[2020-05-28] MEDS ORDERED: Atropine 0.1 MG/ML 10 ML Syringe IVPUSH PRN (18:58)
[2020-05-28] MEDS ORDERED: EPINEPHrine 1:10,000 1 MG/10 ML Syringe IVPUSH PRN (18:58)
[2020-05-28] MEDS: Rivaroxaban 10 MG Tab PO SCH (19:08)
[2020-05-28] MEDS: Sodium Chloride 0.9% 1,000 ML IV SCH (19:09)
[2020-05-28] MEDS: Albuterol 8 GM Inhaler INH SCH ×2 (19:11→22:14)
[2020-05-28] MEDS: Lutein/Minerals/Vitamins A, C & E Tab PO SCH (20:07)
[2020-05-28] MEDS: Pregabalin 100 MG Cap PO SCH (20:07)
[2020-05-28] MEDS: Formoterol/Mometasone 200-5 MCG 8.8 GM Inhaler IH SCH (20:08)
[2020-05-28] MEDS: Glycopyrrolate 15.6 MCG Cap.W.Dev Kit of 6 IH SCH (20:09)
[2020-05-28] MEDS ORDERED: Albuterol/Ipratropium 3.0-0.5 MG/3 ML Neb Soln NEB SCH (21:00)
[2020-05-28] MEDS: Albuterol/Ipratropium 3.0-0.5 MG/3 ML Neb Soln INH SCH (22:13)
[2020-05-28] MEDS: Acetaminophen/oxyCODONE 325-5 MG Tab PO PRN (22:13)
[2020-05-29] MEDS: Albuterol 8 GM Inhaler INH SCH ×7 (02:03→23:10)
[2020-05-29] MEDS: Aluminum Hydroxide/Magnesium Hydroxide/Simethicone Susp 30 ML Cup PO PRN ×3 (02:03→23:06)
[2020-05-29] MEDS: Sodium Chloride 0.9% 1,000 ML IV SCH (04:26)
[2020-05-29] MEDS: Acetaminophen/oxyCODONE 325-5 MG Tab PO PRN ×3 (04:27→18:07)
[2020-05-29] MEDS: Albuterol/Ipratropium 3.0-0.5 MG/3 ML Neb Soln INH SCH ×5 (05:58→23:10)
--- NOTE | 2020-05-29 07:35 | HP ---
Short admission holding note. PATIENT PROFILE: The patient is a 75-year-old patient from [place], [place]. HISTORY OF PRESENT ILLNESS: This patient presented to the emergency room with worsening shortness of breath. The patient was diagnosed as having COVID virus positive on 05/19/2020, and came to the ER for shortness of breath on 05/22/2020 and also on 05/25/2020. The patient had a negative chest x-ray initially, but showed evidence of bilateral interstitial pneumonia on 05/25/2020. The patient received 60 mg of prednisone daily and albuterol HFA q.4 hours and states that the shortness of breath continued. The patient was sent to the clinic for consideration of monoclonal antibody infusions, but was unable to get it due to unavailability. The patient continued to have body aches, fever, chills, chest and back tightness with worsening of shortness of breath. Duration approximately 10 days. PAST MEDICAL HISTORY: Positive for bilateral cataract extraction, decreased hearing, decreased vision, atrial fibrillation, COPD, pneumonia, GERD, peripheral neuropathy, and mood swings. PAST SURGICAL HISTORY: Includes bilateral cataract extraction and right leg fracture repair. SOCIAL/PERSONAL HISTORY: The patient does use caffeine, drinks coffee and soda. Living situation; the patient is and he is retired, living in [place], [place]. FAMILY HISTORY: Nil significant. REVIEW OF SYSTEMS: CONSTITUTIONAL: Reports fever and chills. HEENT: Complaints of rhinitis. RESPIRATORY: See present history. Shortness of breath. CARDIOVASCULAR: Complains of dyspnea on exertion. ENDOCRINE: No symptoms. GASTROINTESTINAL SYMPTOMS: No complaints. GENITOURINARY SYMPTOMS: No complaints. MUSCULOSKELETAL: Has some generalized aching here and there. SKIN: No complaints. NEUROLOGICAL: No complaints. PSYCHIATRIC: No complaints. HEMATOLOGICAL: No complaints. PHYSICAL EXAMINATION: GENERAL: Reveals an elderly patient, in no immediate distress. He appears alert, well oriented to space, time, and person. HEAD: Negative. Atraumatic, normocephalic. NECK: Supple. Full range of motion. No midline swellings. Thyroid gland is not enlarged. Carotid pulses are full and equal. RESPIRATORY: The patient does have crackles present in the left mid and lower zones. Minimally in the right side. No accessory muscle usage. CHEST: Nontender to palpation. Slightly decreased breath sounds. CARDIOVASCULAR: Normal peripheral pulses. Regular rhythm. No thrills. No murmurs. No rubs. GASTROINTESTINAL SYSTEM: Abdomen is soft. No masses. No tenderness. No hepatosplenomegaly. Femoral pulses are full and equal. BACK: Negative. EXTREMITIES: Negative. NEUROLOGICAL: Negative. The patient has normal cranial nerves and peripheral nervous system. PSYCHIATRIC: Normal mood. Normal affect. SKIN: Warm, dry, normal color. No rashes. LYMPHATIC SYSTEM: No lymphadenopathy. IMPRESSION/PLAN: Positive Coronavirus 19 infection. The patient is being admitted for Remdesivir therapy. The patient has moderately severe infection. He does require some oxygen off and on. He is not a candidate for antibiotic treatment at this time. His EKG shows atrial fibrillation and QRS is normal. His temperature is 100, pulse is 95, respirations are 17, blood pressure is 120/86, oxygen saturation 93%. His hemoglobin is 14.7. White count is elevated to 9.48. Platelet count is 201,000. Neutrophils are 72.7, lymphocytes 17.7. Serum sodium slightly low at 132, normal 136, potassium normal, chloride normal, carbon dioxide normal. Anion gap is normal. BUN is 19, normal 18. Creatinine is normal at 0.86. Creatinine clearance is 85. Estimated GFR is greater than 60. Glucose is normal. Lactic acid level is 1.3, normal up to 2. Liver function tests are normal. Total protein is normal except for albumin slightly low at 2.94, normal 3.4. Troponin is normal. Chest x-ray report shows interstitial changes bilaterally consistent with coronavirus disease pneumonia and no change from 05/25/2020. The patient is being admitted with acute COVID pneumonia, history of COPD, history of atrial fibrillation, history of GERD, history of peripheral neuropathy, history of mood swings, status post cataract extraction, right leg fracture repair, use of caffeine. The plan would be to start Remdesivir infusion, IV steroids, oxygen as necessary, negative pressure room isolation. We will get D-dimers, CRP, LDH, ferritin, and CPK levels. /[id number]/MODL MTDD
[2020-05-29] MEDS: Glycopyrrolate 15.6 MCG Cap.W.Dev Kit of 6 IH SCH (08:28)
[2020-05-29] MEDS: Diltiazem 240 MG Cap.ER PO SCH (08:29)
[2020-05-29] MEDS: Lutein/Minerals/Vitamins A, C & E Tab PO SCH ×2 (08:29→20:03)
[2020-05-29] MEDS: Pregabalin 100 MG Cap PO SCH ×3 (08:29→20:02)
[2020-05-29] MEDS: Formoterol/Mometasone 200-5 MCG 8.8 GM Inhaler IH SCH (08:30)
[2020-05-29] MEDS: Multivitamins with Minerals/Iron/Folic Acid/Lycopene Tab PO SCH (08:30)
[2020-05-29] MEDS: Dexamethasone 10 MG/ML SDV IVPUSH SCH (08:31)
--- NOTE | 2020-05-29 09:17 | PCM.PN ---
- General Info Date of Service: 05/29/20 - Patient Data Vitals - Most Recent: Last Vital Signs Temp 96.9 F 05/29/20 06:08 Pulse 75 05/29/20 06:08 Resp 20 05/29/20 06:08 BP 126/69 05/29/20 06:08 Pulse Ox 93 L 05/29/20 06:08 Weight - Most Recent: 232 lb 3 oz I&O - Last 24 Hours: Intake & Output 05/28/20 05/29/20 05/29/20 22:59 06:59 14:59 Intake Total 1807 1117 Balance 1807 1117 Lab Results Last 24 Hours: Laboratory Results - last 24 hr 05/28/20 05/28/20 05/28/20 Range/Units 04:30 16:05 16:05 WBC 9.48 (5.00-10.00) 10^3/uL RBC 4.88 (4.50-6.00) 10^6/uL Hgb 14.7 (13.0-17.0) g/dL Hct 43.0 (40.0-52.0) % MCV 88.1 (82.0-92.0) fL MCH 30.1 (27.0-31.0) pg MCHC 34.2 (32.0-36.0) g/dL RDW 12.8 (11.5-14.5) % Plt Count 201 (150-400) 10^3/uL MPV 10.0 (7.4-10.4) fL Immature Gran % (Auto) 1.8 (0.0-5.0) % Neut % (Auto) 72.7 H (50.0-70.0) % Lymph % (Auto) 17.7 L (20.0-40.0) % [place] % (Auto) 7.1 (2.0-8.0) % Eos % (Auto) 0.4 L (1.0-3.0) % Baso % (Auto) 0.3 (0.0-1.0) % Neut # (Auto) 6.89 (2.50-7.00) 10^3/uL Lymph # (Auto) 1.68 (1.00-4.00) 10^3/uL [place] # (Auto) 0.67 (0.10-0.80) 10^3/uL Eos # (Auto) 0.04 L (0.10-0.30) 10^3/uL Baso # (Auto) 0.03 (0.00-0.10) 10^3/uL Immature Gran # (Auto) 0.17 (0.00-0.50) 10^3/uL D-Dimer, Quantitative (<400) ng/mL Sodium 132 L (136-145) mmol/L Potassium 4.2 (3.5-5.1) mmol/L Chloride 98 (98-107) mmol/L Carbon Dioxide 29.1 (21.0-32.0) mmol/L Anion Gap 9.1 (5-15) mmol/L BUN 19 H (7-18) mg/dL Creatinine 0.86 (0.51-1.17) mg/dL Est Cr Clr Drug Dosing 85.97 mL/min Estimated GFR (MDRD) > 60 mL/min Glucose 116 (70-140) mg/dL Lactic Acid (0.4-2.0) mmol/L Calcium 8.9 (8.7-10.3) mg/dL Total Bilirubin 0.6 (0.2-1.0) mg/dL Direct Bilirubin (0.0-0.2) mg/dL Indirect Bilirubin mg/dL AST 15 (15-37) U/L ALT 28 (14-63) U/L Alkaline Phosphatase 92 (46-116) U/L Creatine Kinase 39 (26-276) U/L CK-MB (CK-2) 0.60 (0.00-3.60) ng/mL Troponin I < 0.017 (0.000-0.056) ng/mL C-Reactive Protein (0.0-0.9) mg/dL B-Natriuretic Peptide (0-100) pg/mL Total Protein 6.6 (6.4-8.2) g/dL Albumin 2.94 L (3.40-5.00) g/dL Globulin Albumin/Globulin Ratio SARS CoV-2 RNA Rapid KEREN Positive H (NEGATIVE) 05/28/20 05/28/20 05/28/20 Range/Units 16:05 16:05 16:05 WBC (5.00-10.00) 10^3/uL RBC (4.50-6.00) 10^6/uL Hgb (13.0-17.0) g/dL Hct (40.0-52.0) % MCV (82.0-92.0) fL MCH (27.0-31.0) pg MCHC (32.0-36.0) g/dL RDW (11.5-14.5) % Plt Count (150-400) 10^3/uL MPV (7.4-10.4) fL Immature Gran % (Auto) (0.0-5.0) % Neut % (Auto) (50.0-70.0) % Lymph % (Auto) (20.0-40.0) % [place] % (Auto) (2.0-8.0) % Eos % (Auto) (1.0-3.0) % Baso % (Auto) (0.0-1.0) % Neut # (Auto) (2.50-7.00) 10^3/uL Lymph # (Auto) (1.00-4.00) 10^3/uL [place] # (Auto) (0.10-0.80) 10^3/uL Eos # (Auto) (0.10-0.30) 10^3/uL Baso # (Auto) (0.00-0.10) 10^3/uL Immature Gran # (Auto) (0.00-0.50) 10^3/uL D-Dimer, Quantitative (<400) ng/mL Sodium (136-145) mmol/L Potassium (3.5-5.1) mmol/L Chloride (98-107) mmol/L Carbon Dioxide (21.0-32.0) mmol/L Anion Gap (5-15) mmol/L BUN (7-18) mg/dL Creatinine (0.51-1.17) mg/dL Est Cr Clr Drug Dosing mL/min Estimated GFR (MDRD) mL/min Glucose (70-140) mg/dL Lactic Acid 1.3 (0.4-2.0) mmol/L Calcium (8.7-10.3) mg/dL Total Bilirubin 0.7 (0.2-1.0) mg/dL Direct Bilirubin 0.2 (0.0-0.2) mg/dL Indirect Bilirubin 0.5 mg/dL AST 18 (15-37) U/L ALT 29 (14-63) U/L Alkaline Phosphatase 93 (46-116) U/L Creatine Kinase (26-276) U/L CK-MB (CK-2) (0.00-3.60) ng/mL Troponin I (0.000-0.056) ng/mL C-Reactive Protein (0.0-0.9) mg/dL B-Natriuretic Peptide 37 (0-100) pg/mL Total Protein 6.6 (6.4-8.2) g/dL Albumin 2.96 L (3.40-5.00) g/dL Globulin 3.64 Albumin/Globulin Ratio 0.81 SARS CoV-2 RNA Rapid KEREN (NEGATIVE) 05/29/20 05/29/20 05/29/20 Range/Units 07:15 07:15 07:15 WBC (5.00-10.00) 10^3/uL RBC (4.50-6.00) 10^6/uL Hgb (13.0-17.0) g/dL Hct (40.0-52.0) % MCV (82.0-92.0) fL MCH (27.0-31.0) pg MCHC (32.0-36.0) g/dL RDW (11.5-14.5) % Plt Count (150-400) 10^3/uL MPV (7.4-10.4) fL Immature Gran % (Auto) (0.0-5.0) % Neut % (Auto) (50.0-70.0) % Lymph % (Auto) (20.0-40.0) % [place] % (Auto) (2.0-8.0) % Eos % (Auto) (1.0-3.0) % Baso % (Auto) (0.0-1.0) % Neut # (Auto) (2.50-7.00) 10^3/uL Lymph # (Auto) (1.00-4.00) 10^3/uL [place] # (Auto) (0.10-0.80) 10^3/uL Eos # (Auto) (0.10-0.30) 10^3/uL Baso # (Auto) (0.00-0.10) 10^3/uL Immature Gran # (Auto) (0.00-0.50) 10^3/uL D-Dimer, Quantitative < 100 (<400) ng/mL Sodium (136-145) mmol/L Potassium (3.5-5.1) mmol/L Chloride (98-107) mmol/L Carbon Dioxide (21.0-32.0) mmol/L Anion Gap (5-15) mmol/L BUN (7-18) mg/dL Creatinine (0.51-1.17) mg/dL Est Cr Clr Drug Dosing mL/min Estimated GFR (MDRD) mL/min Glucose (70-140) mg/dL Lactic Acid (0.4-2.0) mmol/L Calcium (8.7-10.3) mg/dL Total Bilirubin 0.6 (0.2-1.0) mg/dL Direct Bilirubin 0.2 (0.0-0.2) mg/dL Indirect Bilirubin 0.4 mg/dL AST 16 (15-37) U/L ALT 28 (14-63) U/L Alkaline Phosphatase 87 (46-116) U/L Creatine Kinase 47 (26-276) U/L CK-MB (CK-2) (0.00-3.60) ng/mL Troponin I < 0.017 (0.000-0.056) ng/mL C-Reactive Protein 14.9 H (0.0-0.9) mg/dL B-Natriuretic Peptide (0-100) pg/mL Total Protein 6.7 (6.4-8.2) g/dL Albumin 2.90 L (3.40-5.00) g/dL Globulin 3.80 Albumin/Globulin Ratio 0.76 SARS CoV-2 RNA Rapid KEREN (NEGATIVE) Med Orders - Current: Current Medications Acetaminophen (Tylenol) 650 mg PO Q4H PRN PRN Reason: Pain (Mild 1-3)/fever Al Hydroxide/Mg Hydroxide (Mag-Al Plus) 30 ml PO Q4H PRN PRN Reason: Heartburn Last Admin: 05/29/20 02:03 Dose: 30 ml Documented by: Albuterol (Ventolin Hfa) 0 gm INH Q4HR EARLINE Last Admin: 05/29/20 05:59 Dose: 1 puff Documented by: Albuterol/Ipratropium (Duoneb 3.0-0.5 Mg/3 Ml) 3 ml INH Q6HR [facility] Last Admin: 05/29/20 05:58 Dose: 3 ml Documented by: Atropine Sulfate (Atropine 0.1 Mg/Ml) 0 mg IVPUSH ASDIRECTED PRN PRN Reason: Heart. Benzonatate (Tessalon Perles) 200 mg PO Q6HR [facility] Carbamide Perox/Anhydrous Glycerin (Debrox 6.5% Otic Soln) 0 ml EARRT BID PRN PRN Reason: impacted cerumen Dexamethasone (Decadron) 6 mg IVPUSH DAILY [facility] Last Admin: 05/29/20 08:31 Dose: 6 mg Documented by: Diltiazem HCl (Dilacor Xr) 240 mg PO DAILY [facility] Last Admin: 05/29/20 08:29 Dose: 240 mg Documented by: Epinephrine HCl (Epinephrine 1:10,000) 1 mg IVPUSH ASDIRECTED PRN PRN Reason: Heart. Glycopyrrolate (Seebri Neohaler) 15.6 mcg IH BIDRT [facility] Last Admin: 05/29/20 08:28 Dose: 15.6 mcg Documented by: Guaifenesin/Codeine Phosphate (Robitussin Ac) 5 ml PO BID PRN PRN Reason: Cough Remdesivir 100 mg/ Sodium (Chloride) 250 mls @ 250 mls/hr IV Q24H [facility] Lidocaine HCl (Xylocaine 2%) 0 mg IVPUSH ASDIRECTED PRN PRN Reason: Heart. Mometasone Furoate/Formoterol Fumar (Dulera 200-5 Mcg) 2 puff IH BID [facility] Last Admin: 05/29/20 08:30 Dose: 2 puff Documented by: Multivitamins/Minerals (Centrum) 1 tab PO DAILY [facility] Last Admin: 05/29/20 08:30 Dose: 1 tab Documented by: Multivitamins/Minerals (Ocuvite) 1 each PO BID [facility] Last Admin: 05/29/20 08:29 Dose: 1 each Documented by: Nitroglycerin (Nitrostat) 0.4 mg SL ASDIRECTED PRN PRN Reason: Heart. Oxycodone/Acetaminophen (Percocet 325-5 Mg) 1 tab PO Q6HR PRN PRN Reason: severe pain Last Admin: 05/29/20 04:27 Dose: 1 tab Documented by: Pregabalin (Lyrica) 100 mg PO TID [facility] Last Admin: 05/29/20 08:29 Dose: 100 mg Documented by: Rivaroxaban (Xarelto) 20 mg PO DAILY@1800 [facility] Last Admin: 05/28/20 19:08 Dose: 20 mg Documented by: Sodium Chloride (Saline Flush) 10 ml FLUSH Q8HR PRN PRN Reason: keep vein open Zolpidem Tartrate (Ambien) 10 mg PO BEDTIME PRN PRN Reason: Insomnia Discontinued Medications Albuterol/Ipratropium (Duoneb 3.0-0.5 Mg/3 Ml) 3 ml NEB Q4HRRT [facility] Last Admin: 05/28/20 20:11 Dose: 3 ml Documented by: Benzonatate (Tessalon Perles) 200 mg PO Q4HR PRN PRN Reason: Cough Remdesivir 200 mg/ Sodium (Chloride) 250 mls @ 250 mls/hr IV ONETIME ONE Stop: 05/28/20 16:25 Last Admin: 05/28/20 17:11 Dose: 250 mls/hr Documented by: Sodium Chloride (Normal Saline) 1,000 mls @ 999 mls/hr IV .BOLUS ONE Stop: 05/28/20 17:25 Last Admin: 05/28/20 16:54 Dose: 999 mls/hr Documented by: Sodium Chloride (Normal Saline) 1,000 mls @ 100 mls/hr IV ASDIRECTED [facility] Last Admin: 05/29/20 04:26 Dose: 100 mls/hr Documented by: Remdesivir 100 mg/ Sodium (Chloride) 250 mls @ 250 mls/hr IV Q24H [facility] Last Admin: 05/28/20 18:33 Dose: Not Given Documented by: - Exam Physical Findings Comments:: GENERAL: Chronically ill apprearing elderly male in no acute distress. HEENT: Normocephalic, atraumatic. Conjunctiva clear. Nares patent without discharge. Mucous membranes moist, posterior pharynx unremarkable. NECK: Supple, no masses. CV: Irregular rhythm (chronic a-fib), rates controlled, no murmurs, rubs, or gallops. 2+ radial pulses. PULMONARY: Normal effort, diminished bilaterally, mild crackles to bilateral bases; no wheezes or rhonchi. ABDOMEN: Positive bowel sounds, soft, nontender, nondistended. EXTREMITIES: No edema, cyanosis, or clubbing. MUSCULOSKELETAL: Moves all extremities well. NEUROLOGICAL: No obvious deficits. DERMATOLOGIC: No rashes. PSYCHIATRIC: Alert, interactive, appropriate affect. Sepsis Event Note - Evaluation Sepsis Screening Result: No Definite Risk - Focused Exam Vital Signs: Vital Signs Temp Pulse Resp BP Pulse Ox 05/29/20 06:08 96.9 F 75 20 126/69 93 L 05/29/20 01:46 96.5 F L 89 20 107/80 92 L 05/28/20 22:11 97.3 F 91 20 112/63 90 L - Problem List Review Problem List Initiated/Reviewed/Updated: Yes - My Orders Last 24 Hours: My Active Orders 05/29/20 11:00 Benzonatate [Tessalon Perles] 200 mg PO Q6HR - Plan Plan:: HPI summary: Patient was initially seen in [facility] on 05/19/20 and diagnosed with COVID-19. Return precautions provided to patient who sought eval and treat in the ER on 05/22/20 with reassuring vital signs and chest x-ray without acute process. Patient presented to ER again on 05/25/20. CXR obtained on 05/25/20 indicated COVID pneumonia - patient started on tessalon pearles for cough and prednisone 60mg PO daily, patient sent home as O2 sat stable on room air 97%. Patient seen in [facility] on 05/26/20 for ER follow-up. Held spiriva and advair, prescription for duonebs Q6 hours, nebulizer/supplies, and tessalon pearles provided for patient as he reported there was no prescription from the ER available at the pharmacy. He reported dry cough, denied overt shortness of breath, no fever or chills. Return precautions reviewed with patient to return to ER for further evaluation if he experiences increased shortness of breath, chest pain, fever greater than 100.4 or other severe symptoms. Patient missed the window for the monoclonal antibody treatment as [facility] infusion therapy was unable to reach the patient by phone and left three messages per documentation. ED course: Patient presented to ER on the afternoon of 05/28/20 for c/o chest tightness and tmax 100.2. Oxygen saturation 90% on room air in ER. EKG indicated atrial fib with QRS WNL. Tmax in ER 100, all other vitals stable. WBC 9.48, Plt 201. Na slightly low at 132. CRP 14.9. LA 1.3. CXR unchanged from prior imaging on 05/25/20 with atypical pneumonia. Patient admitted due to intermittent need for supplemental oxygen and ramdesevir therapy. No antibiotics initiated as pneumonia of viral etiology. Hospital Course: 05/29/20: Patient reports his cough continues, reports one pea sized hemoptysis episode. D-dimer negative <100. Shortness of breath has improved, patient only using oxygen intermittently this morning, 95% on room air after showering this morning. Stopped telemetry this morning given known atrial fib and rates controlled with heart rate of 80s-90s. Stopped IV fluids this morning as patient drinking adequate amounts of oral fluids. Bowel movement last night, reports chronic constipation due to chronic oxycodone use for neuropathic pain. Will start senna/docusate. Patient states he was not given his ambien last night at bedtime and did not sleep well. Ambien ordered as scheduled rather than PRN as prior. Hospitalization problems and plan: # COVID pneumonia --Supplemental oxygen PRN; Ramdesevir IV daily; dexamethasone 6mg IV daily; no antibiotics indicated due to viral etiology #Cough --Continue tessalon pearles Q8H, robitussin with codeine 5ml BID PRN #hyponatremia, mild. --Na 132; Recheck bmp in am. Patient drinking adequate oral fluids, will stop IV fluids this morning. #Elevated CRP (14.9) Chronic, stable conditions: #Atrial fibrillation, rates controlled --Continue home diltiazem 240mg PO ER #Chronic anti-coagulation --Continue home xarelto 20mg PO daily #COPD --Hold home spiriva and advair; duonebs Q6H while hospitalized and albuterol PRN. #Insomnia --Restart home ambien 10mg PO HS #Peripheral neuropathy --Continue home lyrica 100mg PO TID, Oxycodone 5/325 Q6H PRN. #Chronic opioid induced constipation --Senna/docusate sodium daily #GERD --Stable, no current medications. #history of mood swings Hospitalization details: # FEN: Heart healthy diet, stop IV fluids as patient taking adequate fluids and no concern for volume depletion. # PPX: Teds ordered today, on chronic anticoagulation with xarelto # Code status: FULL CODE # Disposition: Given multiple recent ER visits and known COVID pneumonia, patient meets continued criteria for admission - goal to be off supplemental oxygen for 24 hours prior to discharge.
[2020-05-29] MEDS ORDERED: Benzonatate 100 MG Cap PO SCH (09:30)
[2020-05-29] MEDS: Benzonatate 100 MG Cap PO SCH ×3 (10:00→21:05)
[2020-05-29] MEDS ORDERED: REMDESIVIR 100 MG in Sodium Chloride 0.9% 250 ML IV SCH (17:15)
[2020-05-29] MEDS: Rivaroxaban 10 MG Tab PO SCH (18:06)
[2020-05-29] MEDS ORDERED: Simethicone 80 MG Tab.Chew PO PRN (20:49)
[2020-05-29] MEDS ORDERED: Zolpidem 5 MG Tab PO SCH (21:00)
[2020-05-30] MEDS: Albuterol 8 GM Inhaler INH SCH ×3 (03:06→10:49)
[2020-05-30] MEDS: Albuterol/Ipratropium 3.0-0.5 MG/3 ML Neb Soln INH SCH ×2 (05:57→10:47)
[2020-05-30] MEDS: Benzonatate 100 MG Cap PO SCH (05:57)
[2020-05-30 07:51] LABS: ANION GAP 10.6 mmol/L (5-15); CHLORIDE,CL 100 mmol/L (98-107); SODIUM,NA 137 mmol/L (136-145)
[2020-05-30] MEDS: Lutein/Minerals/Vitamins A, C & E Tab PO SCH (09:14)
[2020-05-30] MEDS: Pregabalin 100 MG Cap PO SCH (09:14)
[2020-05-30] MEDS: Diltiazem 240 MG Cap.ER PO SCH (09:14)
[2020-05-30] MEDS: Multivitamins with Minerals/Iron/Folic Acid/Lycopene Tab PO SCH (09:14)
[2020-05-30] MEDS: Dexamethasone 10 MG/ML SDV IVPUSH SCH (09:14)
[2020-05-30] MEDS: Acetaminophen/oxyCODONE 325-5 MG Tab PO PRN (09:42)
--- NOTE | 2020-05-30 10:21 | PCM.DCSUM1 ---
Discharge Summary - Discharge Data Discharge Date: 05/30/20 Discharge Disposition: Home, Self-Care 01 Condition: Good - Referral to Home Health Primary Care Physician: Paolo Cerda NP - Patient Instructions Diet: Heart Healthy Diet Activity: As Tolerated Activity, Other: Continue using the incentive spirometer Showering/Bathing: September Shower Notify Provider of: Fever (Increased shortness of breath, chest pain, oxygen below 90%, or other severe symptoms) - Discharge Plan *PRESCRIPTION DRUG MONITORING PROGRAM REVIEWED*: No *COPY OF PRESCRIPTION DRUG MONITORING REPORT IN PATIENT PATRICIO: No (reviewed in [facility] 05/26/20) Home Medications: Home Meds Multivitamin [Multi-Vitamin Daily] 1 tab PO DAILY 04/19/14 [History] Tiotropium [Spiriva Handihaler] 1 cap INH DAILY 08/31/14 [History] Albuterol [Proair HFA] 1 puff INH Q4HR 01/15/15 [History] Benzonatate 200 mg PO Q4HR PRN 05/28/20 [History] Codeine Phosphate/Guaifenesin [Codeine-Guaifen 10-100 mg/5 ml] 5 ml PO BID PRN 05/28/20 [History] Diltiazem [Tiazac] 240 mg PO DAILY 05/28/20 [History] Phentermine HCl [Adipex-P] 37.5 mg PO DAILY 05/28/20 [History] Pregabalin [Lyrica] 100 mg PO TID 05/28/20 [History] Rivaroxaban [Xarelto] 20 mg PO 1800 05/28/20 [History] Vit A/Vit C/Vit E/Zinc/Copper [Preservision] 1 tab PO BID 05/28/20 [History] Zolpidem [Ambien] 10 mg PO BEDTIME PRN 05/28/20 [History] oxyCODONE HCl/Acetaminophen [Percocet 5-325 mg Tablet] 1 tab PO Q6HR PRN 05/28/20 [History] Albuterol/Ipratropium [DuoNeb 3.0-0.5 MG/3 ML] 3 ml INH Q6HR #0 05/30/20 [Rx] FA/Lycopene/Lut/MV,Ca,Iron,Min [Centrum] 1 tab PO DAILY tablet 05/30/20 [Rx] Fluticasone/Salmeterol [Advair 250-50] 1 puff INH BID #0 05/30/20 [Rx] Oxygen Therapy Mode: Room Air Referrals: Paolo Cerda, [employer] [Primary Care Provider] - (Patient to follow-up with Paolo Cerda APRN, ANGER CONTROL COUNSELOR in clinic next week.) - Discharge Summary/Plan Comment DC Time >30 min.: Yes Discharge Summary/Plan Comment: Hospital Course: Date of Admission: 05/28/20 Date of Discharge: 05/30/20 Admission Diagnoses: #COVID Pneumonia #Cough #Elevated CRP #Hyponatremia Discharge Diagnoses: #COVID Pneumonia #Cough Secondary Diagnoses: #Atrial fibrillation, rates controlled #Chronic anti-coagulation #COPD #Insomnia #Peripheral neuropathy #Chronic opioid induced constipation #GERD #history of mood swings Hospital Course: HPI summary: Patient was initially seen in [facility] on 05/19/20 and diagnosed with COVID-19. Return precautions provided to patient who sought eval and treat in the ER on 05/22/20 with reassuring vital signs and chest x-ray without acute process. Patient presented to ER again on 05/25/20. CXR obtained on 05/25/20 indicated COVID pneumonia - patient started on tessalon pearles for cough and prednisone 60mg PO daily, patient sent home as O2 sat stable on room air 97%. Patient seen in [facility] on 05/26/20 for ER follow-up. Held spiriva and advair, prescription for duonebs Q6 hours, nebulizer/supplies, and tessalon pearles provided for patient as he reported there was no prescription from the ER available at the pharmacy. He reported dry cough, denied overt shortness of breath, no fever or chills. Return precautions reviewed with patient to return to ER for further evaluation if he experiences increased shortness of breath, chest pain, fever greater than 100.4 or other severe symptoms. Patient missed the window for the monoclonal antibody treatment as [facility] infusion therapy was unable to reach the patient by phone and left three messages per documentation. Patient had one episode of hemoptysis with a pea sized bloody sputum reported, d-dimer was negative. Shortness of breath improved during hospitalization with intermittent supplemental oxygen need of up to 2LPM by NH. Lung sounds diminished bilaterally, though improved from prior. Oxygen saturation 93-95% on room air with activity the morning of discharge with no shortness of breath or increased cough. Patient tolerating oral diet and fluids well. No concerns of constipation. Patient slept well after home ambien was given last night. VSS, afebrile. CRP trending down from 14.9 to 8.6 prior to discharge. Hyponatremia resolved, Na 137 at discharge. Patient dressed in street clothes this morning and states he feels well enough to go home. Discharge and follow-up recommendations: - Discharge home today per self care. - Continue home medications on discharge. Patient to continue duonebs Q6H for the next two days (05/30/20 and 05/31/20) and resume his home spiriva and advair on 06/01/20. Continue PRN tessalon pearles and robitussin with codeine PRN for cough as previously prescribed. - Continue incentive spirometry at home - Continue [facility] [employer] home monitoring program - Patient to notify the clinic of any fever > 100.4, increased shortness of breath, oxygen saturation < 90% on room air, chest pain or other severe symptoms. - Patient to follow-up in clinic early next week with PCP Paolo Cerda APRN, [facility] for hospital follow-up and status update. - General Info Date of Service: 05/30/20 Subjective Update: Patient dressed in street clothes this morning and states he is ready to go home. Patient states he continues to have a dry cough this morning. Denies shortness of breath with activity and at rest this morning. He denies fever and chills. He slept well with his ambien. Functional Status: Reports: Pain Controlled, Tolerating Diet, Ambulating, Urinating, Incentive Spirometry. Denies: New Symptoms - Review of Systems General: Reports: No Symptoms HEENT: Reports: No Symptoms Pulmonary: Reports: Cough (dry). Denies: Shortness of Breath, Pleuritic Chest Pain, Hemoptysis, Wheezing Cardiovascular: Reports: No Symptoms Gastrointestinal: Reports: No Symptoms Genitourinary: Reports: No Symptoms Musculoskeletal: Reports: Back Pain (chronic) Skin: Reports: No Symptoms Neurological: Reports: No Symptoms, Numbness, Tingling (chronic, neuropathic) Psychiatric: Reports: No Symptoms - Patient Data Vitals - Most Recent: Last Vital Signs Temp 97.1 F 05/30/20 05:59 Pulse 65 05/30/20 06:05 Resp 20 05/30/20 05:59 BP 116/69 05/30/20 05:59 Pulse Ox 93 L 05/30/20 09:00 Weight - Most Recent: 232 lb 3 oz I&O - Last 24 hours: Intake & Output 05/29/20 05/30/20 05/30/20 22:59 06:59 14:59 Intake Total 830 150 Balance 830 150 Lab Results - Last 24 hrs: Laboratory Results - last 24 hr 05/29/20 05/29/20 05/30/20 Range/Units 07:15 07:15 07:15 Sodium (136-145) mmol/L Potassium (3.5-5.1) mmol/L Chloride (98-107) mmol/L Carbon Dioxide (21.0-32.0) mmol/L Anion Gap (5-15) mmol/L BUN (7-18) mg/dL Creatinine (0.51-1.17) mg/dL Est Cr Clr Drug Dosing mL/min Estimated GFR (MDRD) mL/min Glucose (70-140) mg/dL Calcium (8.7-10.3) mg/dL Ferritin 204 (24-336) ng/mL Total Bilirubin 0.5 (0.2-1.0) mg/dL Direct Bilirubin 0.2 (0.0-0.2) mg/dL Indirect Bilirubin 0.3 mg/dL AST 14 L (15-37) U/L ALT 30 (14-63) U/L Alkaline Phosphatase 89 (46-116) U/L Lactate Dehydrogenase 224 H (84-212) U/L C-Reactive Protein (0.0-0.9) mg/dL Total Protein 7.1 (6.4-8.2) g/dL Albumin 3.10 L (3.40-5.00) g/dL Globulin 4.00 Albumin/Globulin Ratio 0.77 05/30/20 05/30/20 Range/Units 07:15 07:20 Sodium 137 (136-145) mmol/L Potassium 4.4 (3.5-5.1) mmol/L Chloride 100 (98-107) mmol/L Carbon Dioxide 30.8 (21.0-32.0) mmol/L Anion Gap 10.6 (5-15) mmol/L BUN 20 H (7-18) mg/dL Creatinine 0.67 (0.51-1.17) mg/dL Est Cr Clr Drug Dosing 110.35 mL/min Estimated GFR (MDRD) > 60 mL/min Glucose 156 H (70-140) mg/dL Calcium 8.9 (8.7-10.3) mg/dL Ferritin (24-336) ng/mL Total Bilirubin (0.2-1.0) mg/dL Direct Bilirubin (0.0-0.2) mg/dL Indirect Bilirubin mg/dL AST (15-37) U/L ALT (14-63) U/L Alkaline Phosphatase (46-116) U/L Lactate Dehydrogenase (84-212) U/L C-Reactive Protein 8.6 H (0.0-0.9) mg/dL Total Protein (6.4-8.2) g/dL Albumin (3.40-5.00) g/dL Globulin Albumin/Globulin Ratio Med Orders - Current: Current Medications Acetaminophen (Tylenol) 650 mg PO Q4H PRN PRN Reason: Pain (Mild 1-3)/fever Al Hydroxide/Mg Hydroxide (Mag-Al Plus) 30 ml PO Q4H PRN PRN Reason: Heartburn Last Admin: 05/29/20 23:06 Dose: 30 ml Documented by: Albuterol (Ventolin Hfa) 0 gm INH Q4HR [facility] Last Admin: 05/30/20 05:59 Dose: 1 puff Documented by: Albuterol/Ipratropium (Duoneb 3.0-0.5 Mg/3 Ml) 3 ml INH Q6HR [facility] Last Admin: 05/30/20 05:57 Dose: 3 ml Documented by: Atropine Sulfate (Atropine 0.1 Mg/Ml) 0 mg IVPUSH ASDIRECTED PRN PRN Reason: Heart. Benzonatate (Tessalon Perles) 200 mg PO Q8HR [facility] Last Admin: 05/30/20 05:57 Dose: 200 mg Documented by: Carbamide Perox/Anhydrous Glycerin (Debrox 6.5% Otic Soln) 0 ml EARRT BID PRN PRN Reason: impacted cerumen Dexamethasone (Decadron) 6 mg IVPUSH DAILY [facility] Last Admin: 05/30/20 09:14 Dose: 6 mg Documented by: Diltiazem HCl (Dilacor Xr) 240 mg PO DAILY [facility] Last Admin: 05/30/20 09:14 Dose: 240 mg Documented by: Epinephrine HCl (Epinephrine 1:10,000) 1 mg IVPUSH ASDIRECTED PRN PRN Reason: Heart. Guaifenesin/Codeine Phosphate (Robitussin Ac) 5 ml PO BID PRN PRN Reason: Cough Last Admin: 05/29/20 21:06 Dose: 5 ml Documented by: Remdesivir 100 mg/ Sodium (Chloride) 250 mls @ 250 mls/hr IV Q24H [facility] Last Admin: 05/29/20 16:47 Dose: 250 mls/hr Documented by: Lidocaine HCl (Xylocaine 2%) 0 mg IVPUSH ASDIRECTED PRN PRN Reason: Heart. Multivitamins/Minerals (Centrum) 1 tab PO DAILY [facility] Last Admin: 05/30/20 09:14 Dose: 1 tab Documented by: Multivitamins/Minerals (Ocuvite) 1 each PO BID [facility] Last Admin: 05/30/20 09:14 Dose: 1 each Documented by: Nitroglycerin (Nitrostat) 0.4 mg SL ASDIRECTED PRN PRN Reason: Heart. Oxycodone/Acetaminophen (Percocet 325-5 Mg) 1 tab PO Q6HR PRN PRN Reason: severe pain Last Admin: 05/30/20 09:42 Dose: 1 tab Documented by: Pregabalin (Lyrica) 100 mg PO TID [facility] Last Admin: 05/30/20 09:14 Dose: 100 mg Documented by: Rivaroxaban (Xarelto) 20 mg PO DAILY@1800 [facility] Last Admin: 05/29/20 18:06 Dose: 20 mg Documented by: Senna/Docusate Sodium (Senna Plus) 1 tab PO DAILY [facility] Last Admin: 05/30/20 09:14 Dose: 1 tab Documented by: Simethicone (Simethicone) 80 mg PO Q6H PRN PRN Reason: Heartburn Last Admin: 05/29/20 21:05 Dose: 80 mg Documented by: Sodium Chloride (Saline Flush) 10 ml FLUSH Q8HR PRN PRN Reason: keep vein open Zolpidem Tartrate (Ambien) 10 mg PO BEDTIME [facility] Last Admin: 05/29/20 20:02 Dose: 10 mg Documented by: Discontinued Medications Albuterol/Ipratropium (Duoneb 3.0-0.5 Mg/3 Ml) 3 ml NEB Q4HRRT [facility] Last Admin: 05/28/20 20:11 Dose: 3 ml Documented by: Benzonatate (Tessalon Perles) 200 mg PO Q4HR PRN PRN Reason: Cough Benzonatate (Tessalon Perles) 200 mg PO TID [facility] Glycopyrrolate (Seebri Neohaler) 15.6 mcg IH BIDRT [facility] Last Admin: 05/29/20 08:28 Dose: 15.6 mcg Documented by: Remdesivir 200 mg/ Sodium (Chloride) 250 mls @ 250 mls/hr IV ONETIME ONE Stop: 05/28/20 16:25 Last Admin: 05/28/20 17:11 Dose: 250 mls/hr Documented by: Sodium Chloride (Normal Saline) 1,000 mls @ 999 mls/hr IV .BOLUS ONE Stop: 05/28/20 17:25 Last Admin: 05/28/20 16:54 Dose: 999 mls/hr Documented by: Sodium Chloride (Normal Saline) 1,000 mls @ 100 mls/hr IV ASDIRECTED [facility] Last Admin: 05/29/20 04:26 Dose: 100 mls/hr Documented by: Remdesivir 100 mg/ Sodium (Chloride) 250 mls @ 250 mls/hr IV Q24H [facility] Last Admin: 05/28/20 18:33 Dose: Not Given Documented by: Mometasone Furoate/Formoterol Fumar (Dulera 200-5 Mcg) 2 puff IH BID [facility] Last Admin: 05/29/20 08:30 Dose: 2 puff Documented by: Zolpidem Tartrate (Ambien) 10 mg PO BEDTIME PRN PRN Reason: Insomnia - Exam Quality Assessment: Reports: DVT Prophylaxis. Denies: Supplemental Oxygen General: Reports: Alert, Oriented, Cooperative, No Acute Distress HEENT: Reports: Pupils Equal, Pupils Reactive, Mucous Membr. Moist/[place] Neck: Reports: Supple Lungs: Reports: Normal Respiratory Effort, Decreased Breath Sounds. Denies: Crackles, Rales, Rhonchi, Wheezing Cardiovascular: Reports: Regular Rate, No Murmurs, Irregular Rhythm GI/Abdominal Exam: Normal Bowel Sounds, Soft, Non-Tender, No Distention (Male) Exam: Deferred Rectal (Males) Exam: Deferred Back Exam: Reports: Normal Inspection, Full Range of Motion Extremities: Normal Inspection, Non-Tender, No Pedal Edema, Normal Capillary Refill Skin: Reports: Warm, Dry, Intact Neurological: Reports: No New Focal Deficit Psy/Mental Status: Reports: Alert, Normal Affect, Normal Mood
[2020-05-30] MEDS: Aluminum Hydroxide/Magnesium Hydroxide/Simethicone Susp 30 ML Cup PO PRN (10:57)
[2020-05-30 11:58] VITALS: BP 128/81; PULSE 79
== END 2020-05-30 11:52 | disposition home or self-care (01) | DRG 177 ==
LOC: KA.ED 15:30 → KA.MS 17:10
PROVIDERS: ADMIT Physician Assistant Medical; ATTEND Family Medicine
PROC: XW033E5 Introduction of Remdesivir Anti-infective into Peripheral Vein, Percutaneous Approach, New Technology Group 5 (ICD-10-PCS; principal; 2020-05-28)
DX: U07.1 COVID-19 (principal); J12.82 Pneumonia due to coronavirus disease 2019; E87.1 Hypo-osmolality and hyponatremia; R04.2 Hemoptysis; H54.7 Unspecified visual loss; J44.9 Chronic obstructive pulmonary disease, unspecified; G47.00 Insomnia, unspecified; H91.90 Unspecified hearing loss, unspecified ear; K59.03 Drug induced constipation; I48.91 Unspecified atrial fibrillation; J44.0 Chronic obstructive pulmonary disease with (acute) lower respiratory infection; K21.9 Gastro-esophageal reflux disease without esophagitis; Z87.01 Personal history of pneumonia (recurrent); Z79.01 Long term (current) use of anticoagulants; Z98.41 Cataract extraction status, right eye; Z98.42 Cataract extraction status, left eye; Z88.6 Allergy status to analgesic agent; G62.9 Polyneuropathy, unspecified; F39 Unspecified mood [affective] disorder; Z88.8 Allergy status to other drugs, medicaments and biological substances; Z88.1 Allergy status to other antibiotic agents; Z79.899 Other long term (current) drug therapy
CPT/HCPCS: 36415; 71046; 80053; 80076; 82550; 82553; 83605; 83880; 84484; 85025; 93005; 96365; 99284; 99285; J7030; U0002; 80048; 82728; 83615; 85379; 86140; 94640; A9270-GY; J1100; J7050; J7620-GY

== ENCOUNTER 2021-03-03 10:25 | Emergency (ER) | payer MEDICARE, BC ==
[2021-03-03 10:40] VITALS: BP 138/83; PULSE 78
--- NOTE | 2021-03-03 10:43 | EDM.PDOC ---
ED HPI GENERAL MEDICAL PROBLEM - General Chief Complaint: Lower Extremity Injury/Pain Stated Complaint: LUMP ON RIGHT LEG Time Seen by Provider: 03/03/21 10:35 Source of Information: Reports: Patient History Limitations: Reports: No Limitations - History of Present Illness INITIAL COMMENTS - FREE TEXT/NARRATIVE: Vladislav, 76-year-old male, presents emergency department after contacting [facility] being advised to seek treatment here. He has a raised area of tenderness that is soft to touch on the anterior khan. This is lateral of a severe lower extremity wound that occurred at the age of 3 where he got his leg in a sickle. He has had some vascular and neuro changes secondary of that injury. Intermittent/chronic numbness or at least sensation changes distally of the wound and into the foot. States typically proximal of the wound things are excepted as normal. He did strike his khan more proximal several weeks ago with a glancing blow while he was working at home. Onset: Gradual Onset Date: 03/02/21 Duration: Day(s):, Getting Worse Location: Reports: Lower Extremity, Right Quality: Reports: Pressure Severity: Moderate Improves with: Reports: None Worsens with: Reports: Movement Context: Reports: Activity - Related Data Allergies Allergy/AdvReac Type Severity Reaction Status Date / Time aspirin Allergy Airway Verified 03/03/21 10:37 Tightness ibuprofen Allergy Airway Verified 03/03/21 10:37 Tightness ketorolac tromethamine Allergy Airway Verified 03/03/21 10:37 [From Toradol] Tightness levofloxacin [From Levaquin] Allergy Cannot Verified 03/03/21 10:37 Remember Home Meds: Home Meds Multivitamin [Multi-Vitamin Daily] 1 tab PO DAILY 04/19/14 [History] Tiotropium [Spiriva Handihaler] 1 cap INH DAILY 08/31/14 [History] Albuterol [Proair HFA] 1 puff INH Q4HR 01/15/15 [History] Benzonatate 200 mg PO Q4HR PRN 05/28/20 [History] Codeine Phosphate/Guaifenesin [Codeine-Guaifen 10-100 mg/5 ml] 5 ml PO BID PRN 05/28/20 [History] Diltiazem [Tiazac] 240 mg PO DAILY 05/28/20 [History] Phentermine HCl [Adipex-P] 37.5 mg PO DAILY 05/28/20 [History] Pregabalin [Lyrica] 100 mg PO TID 05/28/20 [History] Rivaroxaban [Xarelto] 20 mg PO 1800 05/28/20 [History] Vit A/Vit C/Vit E/Zinc/Copper [Preservision] 1 tab PO BID 05/28/20 [History] Zolpidem [Ambien] 10 mg PO BEDTIME PRN 05/28/20 [History] oxyCODONE HCl/Acetaminophen [Percocet 5-325 mg Tablet] 1 tab PO Q6HR PRN 05/28/20 [History] Albuterol/Ipratropium [DuoNeb 3.0-0.5 MG/3 ML] 3 ml INH Q6HR #0 05/30/20 [Rx] FA/Lycopene/Lut/MV,Ca,Iron,Min [Centrum] 1 tab PO DAILY tablet 05/30/20 [Rx] Fluticasone/Salmeterol [Advair 250-50] 1 puff INH BID #0 05/30/20 [Rx] Past Medical History HEENT History: Reports: Cataract, Hard of Hearing, Impaired Vision Cardiovascular History: Reports: Afib Respiratory History: Reports: COPD, Pneumonia, Recurrent Gastrointestinal History: Reports: GERD Musculoskeletal History: Reports: Other (See Below) (severe laceration Rt khan, medial) Neurological History: Reports: Neuropathy, Peripheral Psychiatric History: Reports: Mood Swings - Past Surgical History HEENT Surgical History: Reports: Cataract Surgery Other HEENT Surgeries/Procedures: recent cataract surgery Musculoskeletal Surgical History: Reports: Other (See Below) Other Musculoskeletal Surgeries/Procedures:: right leg fracture repair Social & Family History - Family History Family Medical History: No Pertinent Family History - Caffeine Use Caffeine Use: Reports: Coffee, Soda - Living Situation & Occupation Living situation: Reports: Occupation: Retired Review of Systems - Review of Systems Review Of Systems: Comprehensive ROS is negative, except as noted in HPI. ED EXAM, GENERAL - Physical Exam Exam: See Below Free Text/Narrative:: Alert, oriented, in no distress. HEENT is negative to discharge or deformity. There is no deficits noted to motion of the head and neck. Upper extremities are benign. Thorax is clear no wheezes no crackles. Cardiac is regular I do not appreciate a murmur. Focused examination to the right lower extremity shows significant scarring and tissue reformation to the medial aspect of the khan/calf. He relates this was a sickle injury at the age of 3 where they almost amputated the leg due to the compromise of musculature and vasculature. There is a raised by a half a centimeter spongy to palpation with no significant erythema but a clearing/whitish/pearly appearance to the center with no true fluctuation as if an abscess. Distal of that his sensation is never on a normal basis but states it feels slightly different. Proximal of this area sensation is within his normal apprehension. This area of concern is between an AV of the scar formation from his injury. Distally the skin is warm and dry motion is intact to the foot. Course - Vital Signs Last Recorded V/S: Last Vital Signs Temp 96.7 F L 03/03/21 10:37 Pulse 78 03/03/21 10:37 Resp 16 03/03/21 10:37 BP 138/83 03/03/21 10:37 Pulse Ox 94 L 03/03/21 10:37 - Orders/Labs/Meds Labs: Laboratory Tests 03/03/21 03/03/21 03/03/21 Range/Units 10:50 10:50 10:55 WBC 7.33 (5.00-10.00) 10^3/uL RBC 4.90 (4.50-6.00) 10^6/uL Hgb 15.1 (13.0-17.0) g/dL Hct 44.5 (40.0-52.0) % MCV 90.8 (82.0-92.0) fL MCH 30.8 (27.0-31.0) pg MCHC 33.9 (32.0-36.0) g/dL RDW 12.5 (11.5-14.5) % Plt Count 158 (150-400) 10^3/uL MPV 10.5 H (7.4-10.4) fL Immature Gran % (Auto) 0.1 (0.0-5.0) % Neut % (Auto) 62.0 (50.0-70.0) % Lymph % (Auto) 24.4 (20.0-40.0) % [place] % (Auto) 8.3 H (2.0-8.0) % Eos % (Auto) 4.1 H (1.0-3.0) % Baso % (Auto) 1.1 H (0.0-1.0) % Neut # (Auto) 4.54 (2.50-7.00) 10^3/uL Lymph # (Auto) 1.79 (1.00-4.00) 10^3/uL [place] # (Auto) 0.61 (0.10-0.80) 10^3/uL Eos # (Auto) 0.30 (0.10-0.30) 10^3/uL Baso # (Auto) 0.08 (0.00-0.10) 10^3/uL Immature Gran # (Auto) 0.01 (0.00-0.50) 10^3/uL D-Dimer, Quantitative < 100 (<400) ng/mL Sodium 143 (136-145) mmol/L Potassium 4.4 (3.5-5.1) mmol/L Chloride 109 H (98-107) mmol/L Carbon Dioxide 22.1 (21.0-32.0) mmol/L Anion Gap 16.3 H (5-15) mmol/L BUN 22 H (7-18) mg/dL Creatinine 0.84 (0.51-1.17) mg/dL Est Cr Clr Drug Dosing 86.62 mL/min Estimated GFR (MDRD) > 60 mL/min Glucose 92 (70-140) mg/dL Calcium 8.6 L (8.7-10.3) mg/dL Total Bilirubin 0.7 (0.2-1.0) mg/dL AST 19 (15-37) U/L ALT 27 (14-63) U/L Alkaline Phosphatase 96 (46-116) U/L Total Protein 7.2 (6.4-8.2) g/dL Albumin 3.65 (3.40-5.00) g/dL Departure - Departure Time of Disposition: 11:31 Disposition: Home, Self-Care 01 Condition: Good Clinical Impression: Leg injury - Discharge Information *PRESCRIPTION DRUG MONITORING PROGRAM REVIEWED*: Not Applicable *COPY OF PRESCRIPTION DRUG MONITORING REPORT IN PATIENT PATRICIO: Not Applicable Forms: ED Department Discharge Additional Instructions: No abnormality seen on blood work today ruling out a clot as well as x-ray ruling out a fracture. Continue all of your medications as directed. Return tomorrow for an ultrasound of this area specifically to determine if there is a collection of fluid/tissue formation or a early abscess formation. Attempt to use warm compresses at least 3 or 4 times throughout the day and elevate as much as possible until we get the ultrasound tomorrow. Follow-up with clinic or return to the emergency department until we get this testing completed Sepsis Event Note (ED) - Focused Exam Vital Signs: Vital Signs Temp Pulse Resp BP Pulse Ox 03/03/21 10:37 96.7 F L 78 16 138/83 94 L - Problem List & Annotations (1) Leg injury SNOMED Code(s): 825285362 Code(s): S89.90XA - UNSPECIFIED INJURY OF UNSPECIFIED LOWER LEG, INIT ENCNTR Status: Acute Priority: High Current Visit: Yes Qualifiers: Encounter type: initial encounter Laterality: right Qualified Code(s): S89.91XA - Unspecified injury of right lower leg, initial encounter - Problem List Review Problem List Initiated/Reviewed/Updated: Yes - Assessment/Plan Plan: No abnormality seen on blood work today ruling out a clot as well as x-ray ruling out a fracture. Continue all of your medications as directed. Return tomorrow for an ultrasound of this area specifically to determine if there is a collection of fluid/tissue formation or a early abscess formation. Attempt to use warm compresses at least 3 or 4 times throughout the day and elevate as much as possible until we get the ultrasound tomorrow. Follow-up with clinic or return to the emergency department until we get this testing completed.
--- NOTE | 2021-03-03 11:20 | CR ---
[id number] RAD/RAD Tibia Fibula Right EXAM: RAD Tibia Fibula Right INDICATION: LUMP ON ANTERIOR ALCALA (TIBIA) COMPARISON: December 16, 2017. DISCUSSION: Diffuse soft tissue swelling. Mild deformity of the tibia may be from remote trauma or congenital variation. No acute fracture is identified. 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 IMPRESSION: 1. Mild diffuse soft tissue swelling. No definite explanation for the reported palpable abnormality. Jose Whitten MD 03/03/21 1019 Thank you for allowing us to participate in the care of your patient.
[2021-03-03 11:24] LABS: ANION GAP 16.3 mmol/L (5-15); CHLORIDE,CL 109 mmol/L (98-107); SODIUM,NA 143 mmol/L (136-145)
== END 2021-03-03 11:35 | disposition home or self-care (01) ==
LOC: KA.ED 10:31
DX: S89.91XA Unspecified injury of right lower leg, initial encounter (principal); I48.91 Unspecified atrial fibrillation; J44.9 Chronic obstructive pulmonary disease, unspecified; Z88.8 Allergy status to other drugs, medicaments and biological substances; Z88.6 Allergy status to analgesic agent; Z88.5 Allergy status to narcotic agent; Z79.01 Long term (current) use of anticoagulants; Z79.899 Other long term (current) drug therapy; W22.8XXA Striking against or struck by other objects, initial encounter; Y92.009 Unspecified place in unspecified non-institutional (private) residence as the place of occurrence of the external cause
CPT/HCPCS: 36415; 73590-RT; 80053; 85025; 85379; 99283; 99283-25

== ENCOUNTER 2022-05-04 19:30 | Emergency (ER) | payer MEDICARE, BC ==
[2022-05-04 19:45] VITALS: BP 128/72; PULSE 77
[2022-05-04 20:33] LABS: ANION GAP 7.8 mmol/L (5-15)
== END 2022-05-04 21:30 | disposition home or self-care (01) ==
LOC: KA.ED 19:30
DX: M96.840 Postprocedural hematoma of a musculoskeletal structure following a musculoskeletal system procedure (principal); R60.0 Localized edema; I48.91 Unspecified atrial fibrillation; R79.1 Abnormal coagulation profile; J44.9 Chronic obstructive pulmonary disease, unspecified; K21.9 Gastro-esophageal reflux disease without esophagitis; M19.90 Unspecified osteoarthritis, unspecified site; Z96.642 Presence of left artificial hip joint; Z88.8 Allergy status to other drugs, medicaments and biological substances; Z88.6 Allergy status to analgesic agent; Z88.5 Allergy status to narcotic agent; Z88.1 Allergy status to other antibiotic agents; Z79.01 Long term (current) use of anticoagulants; Z79.899 Other long term (current) drug therapy
CPT/HCPCS: 36415; 80048; 85025; 85379; 99283; 99284

== ENCOUNTER 2023-12-17 13:32 | Emergency (ER) | payer MEDICARE ==
[2023-12-17 13:42] VITALS: BP 140/81; PULSE 64
[2023-12-17] MEDS ORDERED: Sodium Chloride 0.9% 10 ML Syringe FLUSH PRN (14:00)
[2023-12-17 14:14] LABS: BASOPHILS ABSOLUTE AUTO 0.06 10^3/uL (0.00-0.10); BASOPHILS PERCENT AUTO 0.8 % (0.0-1.0); HEMOGLOBIN 15.2 g/dL (13.0-17.0); IMMATURE GRAN ABSOLUTE AUTO 0.02 10^3/uL (0.00-0.50); IMMATURE GRAN PERCENT AUTO 0.3 % (0.0-5.0); LYMPHOCYTES ABSOLUTE AUTO 1.94 10^3/uL (1.00-4.00); LYMPHOCYTES PERCENT AUTO 25.8 % (20.0-40.0); MEAN CORPUSCULAR HEMOGLOBIN 30.6 pg (27.0-31.0); MEAN CORPUSCULAR HGB CONC 33.8 g/dL (32.0-36.0); MEAN CORPUSCULAR VOLUME 90.7 fL (82.0-92.0); MEAN PLATELET VOLUME 9.9 fL (7.4-10.4); NEUTROPHILS ABSOLUTE AUTO 4.61 10^3/uL (2.50-7.00); NEUTROPHILS PERCENT AUTO 61.1 % (50.0-70.0); PLATELET COUNT,PLT 196 10^3/uL (150-400); RED BLOOD CELL COUNT 4.96 10^6/uL (4.50-6.00); RED CELL DISTRIBUTION WIDTH 12.7 % (11.5-14.5); WHITE BLOOD CELL COUNT,WBC 7.53 10^3/uL (5.00-10.00)
[2023-12-17] MEDS ORDERED: Sodium Chloride 0.9% 1,000 ML IV SCH (14:15)
[2023-12-17 14:34] LABS: ALANINE AMINOTRANSFERASE,ALT 27 U/L (14-63); ALBUMIN 3.63 g/dL (3.40-5.00); ALKALINE PHOSPHATASE 113 U/L (46-116); ANION GAP 13.8 mmol/L (5-15); ASPARTATE AMNIOTRANSFERASE,AST 15 U/L (15-37); B-TYPE NATRIURETIC PEPTIDE,BNP 27 pg/mL (0-100); BILIRUBIN TOTAL 0.4 mg/dL (0.2-1.0); BLOOD UREA NITROGEN,BUN 25 mg/dL (7-18); CALCIUM 8.8 mg/dL (8.7-10.3); CARBON DIOXIDE,CO2 28.2 mmol/L (21.0-32.0); CHLORIDE,CL 102 mmol/L (98-107); CREATININE 0.85 mg/dL (0.51-1.17); EST CRCL DRUG DOSING (CG) 82.84 mL/min; GLUCOSE RANDOM 110 mg/dL (70-140); PROTEIN TOTAL,TP 7.1 g/dL (6.4-8.2); SODIUM,NA 139 mmol/L (136-145)
[2023-12-17 14:47] LABS: C-REACTIVE PROTEIN < 0.50 mg/dL (0.00-0.50); ESTIMATED GFR 88 mL/min (>=60)
[2023-12-17 15:07] LABS: APPEARANCE,URINE CLEAR (CLEAR); BILIRUBIN,URINE NEGATIVE (NEGATIVE); COLOR,URINE YELLOW (YELLOW); GLUCOSE,URINE NEGATIVE (NEGATIVE); KETONES,URINE NEGATIVE (NEGATIVE); LEUKOCYTE ESTERASE,URINE TRACE (NEGATIVE); NITRITE,URINE NEGATIVE (NEGATIVE); OCCULT BLOOD,URINE NEGATIVE (NEGATIVE); PROTEIN,URINE NEGATIVE (NEGATIVE); UROBILINOGEN,URINE 0.2 E.U./dL (0.2-1.0)
[2023-12-17 15:13] LABS: BACTERIA,URINE RARE /HPF (NONE TO FEW); EPITHELIAL CELLS,URINE RARE /LPF; RBC,URINE 0-5 /HPF (0-5)
[2023-12-17] MEDS: predniSONE 20 MG Tab PO ONE (16:02)
== END 2023-12-17 15:50 | disposition home or self-care (01) ==
LOC: KA.ED 13:32
DX: I48.11 Longstanding persistent atrial fibrillation (principal); J43.9 Emphysema, unspecified; R53.81 Other malaise; R53.83 Other fatigue; K21.9 Gastro-esophageal reflux disease without esophagitis; E78.00 Pure hypercholesterolemia, unspecified; Z88.1 Allergy status to other antibiotic agents; Z88.8 Allergy status to other drugs, medicaments and biological substances; Z79.899 Other long term (current) drug therapy; Z86.16 Personal history of COVID-19; Z90.49 Acquired absence of other specified parts of digestive tract
CPT/HCPCS: 36415; 71045; 80053; 81001; 83605; 83880; 84484; 85025; 86140; 87086; 87088; 93010; 99284; J7512

== ENCOUNTER 2024-03-27 13:13 | Emergency (ER) | payer MEDICARE ==
[2024-03-27 13:51] LABS: BASOPHILS ABSOLUTE AUTO 0.05 10^3/uL (0.00-0.10); BASOPHILS PERCENT AUTO 0.7 % (0.0-1.0); EOSINOPHILS ABSOLUTE AUTO 0.28 10^3/uL (0.10-0.30); EOSINOPHILS PERCENT AUTO 3.9 % (1.0-3.0); HEMATOCRIT 37.4 % (40.0-52.0); IMMATURE GRAN ABSOLUTE AUTO 0.02 10^3/uL (0.00-0.50); IMMATURE GRAN PERCENT AUTO 0.3 % (0.0-5.0); LYMPHOCYTES ABSOLUTE AUTO 1.76 10^3/uL (1.00-4.00); LYMPHOCYTES PERCENT AUTO 24.4 % (20.0-40.0); MEAN CORPUSCULAR HEMOGLOBIN 30.5 pg (27.0-31.0); MEAN CORPUSCULAR VOLUME 89.7 fL (82.0-92.0); MONOCYTES ABSOLUTE AUTO 0.65 10^3/uL (0.10-0.80); NEUTROPHILS ABSOLUTE AUTO 4.45 10^3/uL (2.50-7.00); NEUTROPHILS PERCENT AUTO 61.7 % (50.0-70.0); PLATELET COUNT,PLT 271 10^3/uL (150-400); RED BLOOD CELL COUNT 4.17 10^6/uL (4.50-6.00); RED CELL DISTRIBUTION WIDTH 12.2 % (11.5-14.5); WHITE BLOOD CELL COUNT,WBC 7.21 10^3/uL (5.00-10.00)
[2024-03-27 14:01] LABS: HEMOGLOBIN 12.7 g/dL (13.0-17.0)
[2024-03-27] MEDS ORDERED: Naloxone 0.4 MG/ML SDV IVPUSH PRN ×2 (14:05→15:18)
[2024-03-27 14:07] LABS: ALBUMIN 3.15 g/dL (3.40-5.00); ANION GAP 12.6 mmol/L (5-15); BILIRUBIN TOTAL 0.7 mg/dL (0.2-1.0); C-REACTIVE PROTEIN 7.37 mg/dL (0.00-0.50); CALCIUM 8.6 mg/dL (8.7-10.3); CARBON DIOXIDE,CO2 26.3 mmol/L (21.0-32.0); CREATININE 0.78 mg/dL (0.51-1.17); EST CRCL DRUG DOSING (CG) 88.77 mL/min; POTASSIUM,K 3.9 mmol/L (3.5-5.1)
[2024-03-27] MEDS: Sodium Chloride 0.9% 1,000 ML IV ONE (14:10)
[2024-03-27] MEDS: Ondansetron 4 MG/2 ML SDV IVPUSH ONE (14:15)
[2024-03-27] MEDS: HYDROmorphone 1 MG/ML Syringe IVPUSH ONE ×3 (14:23→17:28)
[2024-03-27] MEDS: Sodium Chloride 0.9% 1,000 ML ONE (14:39)
[2024-03-27 15:57] LABS: APPEARANCE,URINE CLEAR (CLEAR); BILIRUBIN,URINE NEGATIVE (NEGATIVE); COLOR,URINE YELLOW (YELLOW); GLUCOSE,URINE NEGATIVE (NEGATIVE); KETONES,URINE NEGATIVE (NEGATIVE); LEUKOCYTE ESTERASE,URINE NEGATIVE (NEGATIVE); NITRITE,URINE NEGATIVE (NEGATIVE); OCCULT BLOOD,URINE NEGATIVE (NEGATIVE); PH,URINE 7.5 (5.0-9.0); PROTEIN,URINE NEGATIVE (NEGATIVE); UROBILINOGEN,URINE 0.2 E.U./dL (0.2-1.0)
[2024-03-27] MEDS: Ketorolac 30 MG/ML SDV IVPUSH ONE (17:08)
[2024-03-27 17:31] VITALS: BP 110/73; PULSE 78
== END 2024-03-27 17:29 | disposition home or self-care (01) ==
LOC: KA.ED 13:13
DX: M96.840 Postprocedural hematoma of a musculoskeletal structure following a musculoskeletal system procedure (principal); M25.461 Effusion, right knee; M13.161 Monoarthritis, not elsewhere classified, right knee; I48.91 Unspecified atrial fibrillation; E78.00 Pure hypercholesterolemia, unspecified; J44.9 Chronic obstructive pulmonary disease, unspecified; K21.9 Gastro-esophageal reflux disease without esophagitis; Z86.16 Personal history of COVID-19; Z90.49 Acquired absence of other specified parts of digestive tract; Z96.651 Presence of right artificial knee joint; Z47.1 Aftercare following joint replacement surgery; Z79.899 Other long term (current) drug therapy; Z88.6 Allergy status to analgesic agent; Z88.1 Allergy status to other antibiotic agents
CPT/HCPCS: 36415; 80053; 81003; 83605; 84550; 85025; 86140; 87040; 87070; 87075; 87205; 96361; 96374; 96375; 96376; 99284; J1171; J1885; J2405; J7030

== ENCOUNTER 2024-07-14 11:08 | Emergency (ER) | payer MEDICARE ==
[2024-07-14] MEDS ORDERED: Sodium Chloride 0.9% 10 ML Syringe FLUSH PRN (11:23)
[2024-07-14 11:42] LABS: BASOPHILS ABSOLUTE AUTO 0.03 10^3/uL (0.00-0.10); BASOPHILS PERCENT AUTO 0.4 % (0.0-1.0); EOSINOPHILS ABSOLUTE AUTO 0.24 10^3/uL (0.10-0.30); EOSINOPHILS PERCENT AUTO 3.5 % (1.0-3.0); HEMATOCRIT 44.9 % (40.0-52.0); HEMOGLOBIN 15.1 g/dL (13.0-17.0); IMMATURE GRAN ABSOLUTE AUTO 0.01 10^3/uL (0.00-0.04); IMMATURE GRAN PERCENT AUTO 0.1 % (0.0-0.4); LYMPHOCYTES ABSOLUTE AUTO 1.68 10^3/uL (1.00-4.00); LYMPHOCYTES PERCENT AUTO 24.3 % (20.0-40.0); MEAN CORPUSCULAR HEMOGLOBIN 28.7 pg (27.0-31.0); MEAN CORPUSCULAR HGB CONC 33.6 g/dL (32.0-36.0); MEAN CORPUSCULAR VOLUME 85.4 fL (82.0-92.0); MONOCYTES ABSOLUTE AUTO 0.56 10^3/uL (0.10-0.80); MONOCYTES PERCENT AUTO 8.1 % (2.0-8.0); NEUTROPHILS ABSOLUTE AUTO 4.39 10^3/uL (2.50-7.00); NEUTROPHILS PERCENT AUTO 63.6 % (50.0-70.0); PLATELET COUNT,PLT 203 10^3/uL (150-400); RED BLOOD CELL COUNT 5.26 10^6/uL (4.50-6.00); RED CELL DISTRIBUTION WIDTH 13.4 % (11.5-14.5); WHITE BLOOD CELL COUNT,WBC 6.91 10^3/uL (5.00-10.00)
[2024-07-14 11:59] LABS: ALBUMIN 3.91 g/dL (3.40-5.00); ANION GAP 15.9 mmol/L (5-15); BILIRUBIN TOTAL 0.5 mg/dL (0.2-1.0); CALCIUM 9.5 mg/dL (8.7-10.3); CARBON DIOXIDE,CO2 26.3 mmol/L (21.0-32.0); CREATININE 0.84 mg/dL (0.51-1.17); EST CRCL DRUG DOSING (CG) 82.43 mL/min; POTASSIUM,K 4.2 mmol/L (3.5-5.1); PROTEIN TOTAL,TP 7.6 g/dL (6.4-8.2)
[2024-07-14] MEDS: Iopamidol 755 Mg/ML 100 ML Bottle IV ONE (12:21)
[2024-07-14] MEDS: Sodium Chloride 0.9% 50 ML IV SCH (12:21)
[2024-07-14] MEDS: Sodium Chloride 0.9% 1,000 ML IV SCH (12:22)
[2024-07-14 13:28] VITALS: BP 140/101; PULSE 86
== END 2024-07-14 13:35 | disposition home or self-care (01) ==
LOC: KA.ED 11:08
DX: N20.0 Calculus of kidney (principal); I48.91 Unspecified atrial fibrillation; E78.00 Pure hypercholesterolemia, unspecified; J44.9 Chronic obstructive pulmonary disease, unspecified; K21.9 Gastro-esophageal reflux disease without esophagitis; Z86.16 Personal history of COVID-19; Z90.49 Acquired absence of other specified parts of digestive tract; Z88.5 Allergy status to narcotic agent; Z88.6 Allergy status to analgesic agent; Z88.8 Allergy status to other drugs, medicaments and biological substances; Z79.01 Long term (current) use of anticoagulants; Z79.51 Long term (current) use of inhaled steroids; Z79.899 Other long term (current) drug therapy
CPT/HCPCS: 74177; 80053; 82150; 83605; 83690; 85025; 86140; 99284; J3490; J7030; Q9967; 36415

== ENCOUNTER 2024-07-24 06:57 | Day surgery (SDC) | payer MEDICARE ==
[2024-07-24] MEDS ORDERED: Sodium Chloride 0.9% 10 ML Syringe FLUSH PRN (07:00)
[2024-07-24] MEDS: Lactated Ringers 1,000 ML IV SCH (07:04)
[2024-07-24] MEDS ORDERED: Glycopyrrolate 0.2 MG/ML SDV ONE (08:00)
[2024-07-24] MEDS ORDERED: Midazolam 1 MG/ML 2 ML SDV ONE (08:00)
[2024-07-24] MEDS ORDERED: Propofol 200 MG/20 ML SDV ONE (08:00)
[2024-07-24] MEDS: Sucralfate 1 GM Tab PO ONE (09:50)
[2024-07-24 13:37] VITALS: BP 118/70; PULSE 70
== END 2024-07-24 10:45 | disposition home or self-care (01) ==
LOC: KA.SDS 06:57
PROVIDERS: ATTEND Family Medicine
DX: K21.00 Gastro-esophageal reflux disease with esophagitis, without bleeding (principal); K29.50 Unspecified chronic gastritis without bleeding; K44.9 Diaphragmatic hernia without obstruction or gangrene; K31.89 Other diseases of stomach and duodenum; Z79.899 Other long term (current) drug therapy; Z88.8 Allergy status to other drugs, medicaments and biological substances
CPT/HCPCS: 00731; 99100; A9270-GY; J1596; J2250; J2704; J7120

== ENCOUNTER 2024-09-06 20:09 | Emergency (ER) | payer MEDICARE ==
[2024-09-06 20:47] VITALS: BP 128/78; PULSE 105
[2024-09-06] MEDS: Cephalexin 250 MG Cap PO ONE (20:51)
== END 2024-09-06 21:02 | disposition home or self-care (01) ==
LOC: KA.ED 20:09
DX: L03.032 Cellulitis of left toe (principal); Z88.8 Allergy status to other drugs, medicaments and biological substances; Z79.899 Other long term (current) drug therapy; Z90.49 Acquired absence of other specified parts of digestive tract
CPT/HCPCS: 99283; A9270-GY

== ENCOUNTER 2024-09-09 11:17 | Emergency (ER) | payer MEDICARE ==
[2024-09-09 11:52] LABS: BASOPHILS ABSOLUTE AUTO 0.05 10^3/uL (0.00-0.10); BASOPHILS PERCENT AUTO 0.6 % (0.0-1.0); EOSINOPHILS ABSOLUTE AUTO 0.28 10^3/uL (0.10-0.30); EOSINOPHILS PERCENT AUTO 3.4 % (1.0-3.0); HEMATOCRIT 40.4 % (40.0-52.0); HEMOGLOBIN 13.5 g/dL (13.0-17.0); IMMATURE GRAN ABSOLUTE AUTO 0.01 10^3/uL (0.00-0.04); IMMATURE GRAN PERCENT AUTO 0.1 % (0.0-0.4); LYMPHOCYTES PERCENT AUTO 19.2 % (20.0-40.0); MEAN CORPUSCULAR HEMOGLOBIN 29.3 pg (27.0-31.0); MEAN CORPUSCULAR HGB CONC 33.4 g/dL (32.0-36.0); MEAN CORPUSCULAR VOLUME 87.6 fL (82.0-92.0); MONOCYTES ABSOLUTE AUTO 0.59 10^3/uL (0.10-0.80); MONOCYTES PERCENT AUTO 7.1 % (2.0-8.0); NEUTROPHILS PERCENT AUTO 69.6 % (50.0-70.0); PLATELET COUNT,PLT 171 10^3/uL (150-400); RED BLOOD CELL COUNT 4.61 10^6/uL (4.50-6.00); RED CELL DISTRIBUTION WIDTH 13.2 % (11.5-14.5); WHITE BLOOD CELL COUNT,WBC 8.33 10^3/uL (5.00-10.00)
[2024-09-09] MEDS: Doxycycline Monohydrate 100 MG Cap PO ONE ×2 (12:10)
[2024-09-09 12:15] VITALS: PULSE 80
[2024-09-09 12:29] VITALS: BP 131/71
== END 2024-09-09 12:23 | disposition home or self-care (01) ==
LOC: KA.ED 11:17
DX: L03.032 Cellulitis of left toe (principal); I48.91 Unspecified atrial fibrillation; E78.00 Pure hypercholesterolemia, unspecified; J44.9 Chronic obstructive pulmonary disease, unspecified; Z88.6 Allergy status to analgesic agent; Z88.8 Allergy status to other drugs, medicaments and biological substances; Z88.5 Allergy status to narcotic agent; Z88.1 Allergy status to other antibiotic agents; Z79.899 Other long term (current) drug therapy; Z79.51 Long term (current) use of inhaled steroids
CPT/HCPCS: 36415; 85025; 87040; 99283; A9270-GY

== ENCOUNTER 2024-09-12 13:07 | Emergency (ER) | payer MEDICARE ==
[2024-09-12 13:23] VITALS: BP 156/96; PULSE 84
== END 2024-09-12 13:27 | disposition home or self-care (01) ==
LOC: KA.ED 13:07
DX: L53.9 Erythematous condition, unspecified (principal); I11.0 Hypertensive heart disease with heart failure; I50.9 Heart failure, unspecified; I48.91 Unspecified atrial fibrillation; J44.9 Chronic obstructive pulmonary disease, unspecified; M19.90 Unspecified osteoarthritis, unspecified site; Z88.8 Allergy status to other drugs, medicaments and biological substances; Z79.01 Long term (current) use of anticoagulants; Z79.899 Other long term (current) drug therapy; Z79.51 Long term (current) use of inhaled steroids; Z88.5 Allergy status to narcotic agent
CPT/HCPCS: 99283